=== PATIENT | male | born 1960 | race Caucasian/White ===

== ENCOUNTER 2017-11-03 12:17 | Inpatient (IN) | payer MEDICARE, BC ==
[2017-11-03] MEDS ORDERED: Albuterol-Ipratrop 3 mg / 0.5 (3 ml) UD INH STA ×2 (12:49→14:59)
[2017-11-03] MEDS ORDERED: Albuterol-Ipratrop 3 mg / 0.5 (3 ml) UD ONE ×2 (12:51→15:23)
--- NOTE | 2017-11-03 12:58 | ED PDOC ---
HPI: General Adult Time Seen by Provider: 11/03/17 12:41 Chief Complaint (Nursing): ENT Problem Chief Complaint (Provider): Cough History Per: Patient History/Exam Limitations: no limitations Onset/Duration Of Symptoms: Days (x7) Current Symptoms Are (Timing): Still Present Additional Complaint(s): 57 year old male presents to the emergency department complaining of a cough for 7 days. Patient saw his primary, Dr. Dozier, on Tuesday and was prescribed Augmentin and promethazine cough medicine but he states he doesn't feel any better. He denies any fever or chills. PMD: Dr. Dozier Past Medical History Reviewed: Historical Data, Nursing Documentation, Vital Signs Vital Signs: Last Vital Signs Temp 98.0 F 11/03/17 12:35 Pulse 79 11/03/17 12:35 Resp 16 11/03/17 12:35 BP 162/75 H 11/03/17 12:35 Pulse Ox 92 L 11/03/17 14:49 - Medical History PMH: Anxiety, Asthma, Atrial Fibrillation, CAD, CHF, Diabetes, Fractures, HTN, Hypercholesterolemia, Hyperlipidemia, Chronic Kidney Disease - Surgical History Surgical History: CABG, Carotid Endarterectomy, Cholecystectomy, Coronary Stent Other surgeries: Kidney transplant - Family History Family History: States: No Known Family Hx - Living Arrangements Living Arrangements: With Family - Social History Current smoker - smoking cessation education provided: No Alcohol: None Drugs: Denies - Home Medications Home Medications: Ambulatory Orders Medication Instructions Recorded Insulin Aspart/Insulin Aspar 16 - 18 unit SC DIN 08/20/15 [Novolog Mix 70/30 (70/30 units/ml)] Insulin Aspart/Insulin Aspar 25 unit SC BRK 08/20/15 [Novolog Mix 70/30 (70/30 units/ml)] Pantoprazole Sodium [Protonix] 40 mg PO ACL 08/20/15 Pregabalin [Lyrica] 100 mg PO HS 12/22/15 traMADol [Ultram] 50 mg PO DAILY PRN 12/22/15 Albuterol 0.083% [Albuterol 0.083% 3 ml IH Q6 PRN 11/03/17 Inhal Quyen (2.5 mg/3 ml) UD] Alprazolam [Xanax] 0.5 mg PO HS PRN 11/03/17 Amoxicillin/Clavulanate [Augmentin 1 tab PO BID 11/03/17 875 MG-125 MG Tab] Aspirin [Ecotrin] 81 mg PO DAILY 11/03/17 Atorvastatin [Lipitor] 20 mg PO HS 11/03/17 Cholecalciferol (Vitamin D3) 2,000 unit PO DAILY 11/03/17 [Vitamin D3] Diltiazem HCl [Diltiazem 24Hr ER] 240 mg PO DAILY 11/03/17 Metoprolol Tartrate [Lopressor] 100 mg PO Q12 11/03/17 Multivitamin [Multi-Vitamin Daily] 1 tab PO DAILY 11/03/17 Mycophenolate Sodium [Mycophenolic 540 mg PO Q12 11/03/17 Acid] Promethazine [Phenergan Syrup] 10 ml PO Q6 PRN 11/03/17 Sulfamethoxazole/Trimethoprim 1 tab PO MWF 11/03/17 [Bactrim DS Tab] Tacrolimus [Astagraf Xl] 2 mg PO DAILY@0700 11/03/17 Warfarin [Coumadin] 5 mg PO SUMOTUTHSA 11/03/17 Warfarin [Coumadin] 7.5 mg PO WE 11/03/17 predniSONE [predniSONE Tab] 5 mg PO DAILY 11/03/17 - Allergies Allergies/Adverse Reactions: Allergies Allergy/AdvReac Type Severity Reaction Status Date / Time No Known Allergies Allergy Verified 11/03/17 12:35 Review of Systems ROS Statement: Except As Marked, All Systems Reviewed And Found Negative Constitutional: Negative for: Fever, Chills Respiratory: Positive for: Cough, Shortness of Breath, Wheezing. Negative for: Hemoptysis, Sputum Gastrointestinal: Negative for: Nausea, Vomiting Neurological: Negative for: Headache, Dizziness Physical Exam - Reviewed Nursing Documentation Reviewed: Yes Vital Signs Reviewed: Yes - Physical Exam Appears: Positive for: Well, Non-toxic, No Acute Distress Head Exam: Positive for: ATRAUMATIC, NORMAL INSPECTION, NORMOCEPHALIC Skin: Positive for: Normal Color. Negative for: Rash Eye Exam: Positive for: Other (chronic vision loss left eye) Cardiovascular/Chest: Positive for: Regular Rate, Rhythm Respiratory: Positive for: Rhonchi, Wheezing (bilateral inspiratory and expiratory wheezing). Negative for: Accessory Muscle Use, Respiratory Distress Gastrointestinal/Abdominal: Positive for: Soft. Negative for: Tenderness Back: Negative for: L CVA Tenderness, R CVA Tenderness Extremity: Positive for: Normal ROM Neurologic/Psych: Positive for: Alert, Oriented - Laboratory Results Result Diagrams: 11/03/17 14:15 11/03/17 14:15 - ECG Interpretation Of ECG: Normal sinus rhythm 78 bpm, left axis deviation, left ventricular hypertrophy, reviewed by PA and ED attending O2 Sat by Pulse Oximetry: 92 (RA) Pulse Ox Interpretation: Abnormal - Other Rad CXR X-Ray: Interpreted by Me, Viewed By Me X-Ray Interpretation: no acute finding Nebulizer Treatments/Peak Flow - Duonebs Number of Bronchodilator Doses given?: 1 (duoneb) - Pre/Post Peak Flow Pre Treatment Peak Flow: 110 Post treatment Peak Flow: 190 - Steroid Treatment Steroid: IV (125 solumedrol) - Clinical Response Clinical Response: Unchanged Medical Decision Making Medical Decision Making: Impression: 57 year old with URI symptoms Time: 12:48 Initial Plan: --Chest X-Ray --Duoneb 3 ml INH --Peak Flow pre/post treatment --Flu swab --Urinalysis --Urine culture --EKG --CBC --CMP --Troponin I --PO Robitussin with codeine 10 ml 14:45 Case discussed with patient's primary doctor, Dr. Dozier, who recommends admission. Patient has been taking oral Augmentin and cough meds for 4 days and reports no improvement to URI symptoms. Patient's oxygen saturation is between 90 and 92% in the ED despite administration of IV steroids and DuoNeb treatments. Leukocytes also noted in the urine consistent with UTI. Patient agrees with admission. On gram IV Rocephin ordered along with 500 mg IV Zithromax. Scribe Attestation: Documented by Elvira Pittman, acting as a scribe for Hermila Alvarado PA-C Provider Scribe Attestation: All medical record entries made by the Scribe were at my direction and personally dictated by me. I have reviewed the chart and agree that the record accurately reflects my personal performance of the history, physical exam, medical decision making, and the department course for this patient. I have also personally directed, reviewed, and agree with the discharge instructions and disposition. Disposition - Clinical Impression Clinical Impression: Dyspnea and respiratory abnormalities, Urinary tract infection - Patient ED Disposition Is Patient to be Admitted: Yes - Disposition Disposition Time: 15:46 Condition: FAIR Forms: [facility] ([place]) - Pt Status Changed To: Hospital Disposition Of: Inpatient - Admit Certification Admit to Inpatient:: After my assessment, the patient will require hospitalization for at least two midnights. This is because of the severity of symptoms shown, intensity of services needed, and/or the medical risk in this patient being treated as an outpatient. - POA Present On Arrival: None Results - Lab Results Lab Results: 11/03/17 11/03/17 11/03/17 14:15 14:15 13:54 WBC 6.5 RBC 5.14 Hgb 14.5 Hct 44.4 MCV 86.4 D MCH 28.2 MCHC 32.6 L RDW 16.2 H Plt Count 159 MPV 8.8 Neut % (Auto) 87.7 H Lymph % (Auto) 2.2 L Dix[place] % (Auto) 8.6 Eos % (Auto) 0.8 Baso % (Auto) 0.7 Neut # (Auto) 5.7 Lymph # (Auto) 0.1 L [place] # (Auto) 0.6 Eos # (Auto) 0.1 Baso # (Auto) 0.0 Neutrophils % (Manual) Pending Lymphocytes % (Manual) Pending Monocytes % (Manual) Pending Platelet Estimate Pending Sodium 139 Potassium 4.8 Chloride 100 Carbon Dioxide 28 Anion Gap 16 BUN 24 H Creatinine 1.1 Est GFR ( Amer) > 60 Est GFR (Non-Af Amer) > 60 POC Glucose (mg/dL) Random Glucose 229 H Calcium 10.4 H Total Bilirubin 0.6 AST 29 ALT 31 Alkaline Phosphatase 99 Troponin I 0.0340 Total Protein 6.6 Albumin 3.8 Globulin 2.8 Albumin/Globulin Ratio 1.3 Urine Color Yellow Urine Clarity Slighty-cloudy Urine pH 6.0 Ur Specific [place] 1.022 Urine Protein 30 Urine Glucose (UA) >=500 Urine Ketones Negative Urine Blood Negative Urine Nitrate Negative Urine Bilirubin Negative Urine Urobilinogen 0.2-1.0 Ur Leukocyte Esterase Small Urine RBC (Auto) 2 Urine Microscopic WBC 9 H Ur Squamous Epith Cells 2 Amorphous Sediment Few H Urine Bacteria Few H Granular Casts (Auto) 1 Influenza Typ A,B (EIA) 11/03/17 11/03/17 13:54 13:31 WBC RBC Hgb Hct MCV MCH MCHC RDW Plt Count MPV Neut % (Auto) Lymph % (Auto) [place] % (Auto) Eos % (Auto) Baso % (Auto) Neut # (Auto) Lymph # (Auto) [place] # (Auto) Eos # (Auto) Baso # (Auto) Neutrophils % (Manual) Lymphocytes % (Manual) Monocytes % (Manual) Platelet Estimate Sodium Potassium Chloride Carbon Dioxide Anion Gap BUN Creatinine Est GFR ( Amer) Est GFR (Non-Af Amer) POC Glucose (mg/dL) 234 H Random Glucose Calcium Total Bilirubin AST ALT Alkaline Phosphatase Troponin I Total Protein Albumin Globulin Albumin/Globulin Ratio Urine Color Urine Clarity Urine pH Ur Specific [place] Urine Protein Urine Glucose (UA) Urine Ketones Urine Blood Urine Nitrate Urine Bilirubin Urine Urobilinogen Ur Leukocyte Esterase Urine RBC (Auto) Urine Microscopic WBC Ur Squamous Epith Cells Amorphous Sediment Urine Bacteria Granular Casts (Auto) Influenza Typ A,B (EIA) Negative for flu a/b
--- NOTE | 2017-11-03 13:38 | RAD ---
HISTORY: COMPARISON: 12/22/2015. TECHNIQUE: Chest PA and lateral FINDINGS: LINES AND TUBES: None. LUNG AND PLEURA: There is mild pulmonary venous congestion. No focal consolidation. There is left pleural thickening. No right pleural effusion. HEART AND MEDIASTINUM: There is mild cardiomegaly. Status post CABG. The hilar and mediastinal contours are within normal limits. SKELETAL STRUCTURES: There are old fracture deformities in the left lower lateral ribs. VISUALIZED UPPER ABDOMEN: Normal. OTHER FINDINGS: None. IMPRESSION: No active pulmonary disease.
[2017-11-03] MEDS ORDERED: guaiFENesin-Codeine 100-10mg/5ml Syrup (5 ml) UD PO STA (13:59)
[2017-11-03 14:03] LABS: URINE BACTERIA FEW (<OCC); URINE BILIRUBIN NEGATIVE (NEGATIVE); URINE BLOOD NEGATIVE (NEGATIVE); URINE CLARITY SLIGHTY-CLOUDY (Clear); URINE COLOR YELLOW (YELLOW); URINE GLUCOSE (UA) >=500 mg/dL (Normal); URINE LEUKOCYTE ESTERASE SMALL Leu/uL (Negative); URINE PROTEIN 30 mg/dL (NEGATIVE); URINE UROBILINOGEN 0.2-1.0 mg/dL (0.2-1.0)
[2017-11-03 14:04] LABS: GRANULAR CAST 1 /lpf (0-1); SQUAMOUS EPITHIAL 2 /hpf (0-5); URINE AMORPHOUS SEDIMENT FEW /ul (<OCC)
[2017-11-03 14:28] LABS: ALB/GLOB RATIO 1.3 (1.0-2.1); ALBUMIN 3.8 g/dL (3.5-5.0); ALT/SGPT 31 U/L (21-72); AST/SGOT 29 U/L (17-59); BLOOD UREA NITROGEN 24 mg/dl (9-20); CALCIUM 10.4 mg/dL (8.4-10.2); GFR AFRICAN-AMERICAN > 60; GFR NON-AFRICAN AMERICAN > 60
[2017-11-03 14:35] LABS: BASO % 0.7 % (0.0-2.0); EOS # 0.1 K/uL (0.0-0.7); EOS % 0.8 % (0.0-4.0); HEMOGLOBIN 14.5 g/dL (12.0-18.0); LYMPH # 0.1 K/uL (1.0-4.3); LYMPH % 2.2 % (20.0-40.0); MEAN CELL VOLUME 86.4 fl (80.0-94.0); MEAN CORPUSCULAR HEMOGLOBIN 28.2 pg (27.0-31.0); MEAN CORPUSCULAR HGB CONC 32.6 g/dL (33.0-37.0); MEAN PLATELET VOLUME 8.8 fl (7.2-11.7); MONO # 0.6 K/uL (0.0-0.8); MONO % 8.6 % (0.0-10.0); NEUT # 5.7 K/uL (1.8-7.0); NEUT % 87.7 % (50.0-75.0); NRBC % 0.1 % (0.0-0.0); PLATELET COUNT 159 K/uL (130-400); RBC 5.14 Mil/uL (4.40-5.90); RED CELL DISTRIBUTION WIDTH 16.2 % (11.5-14.5); WHITE BLOOD COUNT 6.5 K/uL (4.8-10.8)
[2017-11-03] MEDS ORDERED: guaiFENesin-Codeine 100-10mg/5ml Syrup (5 ml) UD ONE (14:44)
[2017-11-03] MEDS ORDERED: Azithromycin 500 MG in Sodium Chloride 0.9% 250 ML IVPB STA (14:47)
[2017-11-03] MEDS ORDERED: Nasal Spray(Ocean spray) NAS STA (15:00)
[2017-11-03] MEDS ORDERED: cefTRIAXone (Rocephin) 1 gm Inj ONE (15:23)
[2017-11-03 15:49] LABS: ANISOCYTOSIS SLIGHT; BASOPHIL 1 % (0-2); EOSINOPHIL 2 % (0-7); LYMPHOCYTE 3 % (20-50); MONOCYTE 8 % (0-10); NEUTROPHIL 86 % (42-75); PLATELET ESTIMATE NORMAL (NORMAL); TOTAL CELLS COUNTED 100
--- NOTE | 2017-11-03 18:22 | CARD ---
APPROVED REPORT EKG Measurement Heart [id number] <Conclusion> Normal sinus rhythm Possible Left atrial enlargement Left axis deviation Left ventricular hypertrophy with repolarization abnormality Abnormal ECG
[2017-11-04] MEDS ORDERED: Promethazine 6.25 MG/5 ML CUP PO PRN (00:21)
[2017-11-04] MEDS ORDERED: Sodium Chloride 3% for Inhalation 4 ML VIAL.NEB IH PRN (01:09)
[2017-11-04] MEDS ORDERED: methylPREDNISolone 80 MG in Sodium Chloride 0.9% 50 ML IV SCH (01:15)
[2017-11-04] MEDS: Promethazine 12.5 mg/10 ml Syrup PO PRN ×3 (02:38→20:58)
[2017-11-04] MEDS: Albuterol-Ipratrop 3 mg / 0.5 (3 ml) UD INH SCH ×4 (02:41→19:19)
[2017-11-04 05:44] LABS: HEMOGLOBIN 14.3 g/dL (12.0-18.0); MEAN CELL VOLUME 87.2 fl (80.0-94.0); MEAN CORPUSCULAR HEMOGLOBIN 28.3 pg (27.0-31.0); MEAN CORPUSCULAR HGB CONC 32.5 g/dL (33.0-37.0); RBC 5.05 Mil/uL (4.40-5.90); RED CELL DISTRIBUTION WIDTH 16.1 % (11.5-14.5); WHITE BLOOD COUNT 6.8 K/uL (4.8-10.8)
[2017-11-04 05:55] LABS: BLOOD UREA NITROGEN 25 mg/dl (9-20); CALCIUM 9.9 mg/dL (8.4-10.2); GFR AFRICAN-AMERICAN > 60; GFR NON-AFRICAN AMERICAN > 60; HDL CHOLESTEROL 36 MG/DL (30-70)
[2017-11-04 05:59] LABS: INR 1.8 (0.9-1.2); PROTHROMBIN TIME 19.7 Seconds (9.8-13.1)
[2017-11-04 06:06] LABS: LDL CHOLESTEROL 114 mg/dL (0-129)
[2017-11-04] MEDS ORDERED: INSULIN ASPART SC SCH ×2 (08:00→17:00)
[2017-11-04] MEDS ORDERED: INSULIN ASPAR SC SCH ×2 (08:00→17:00)
[2017-11-04] MEDS ORDERED: [UNRECOGNIZED DRUG - OTHER] SC SCH (08:00)
[2017-11-04] MEDS: Tmp-Smz 800 mg-160 mg DS Tab PO SCH (08:41)
[2017-11-04] MEDS: diltiaZEM 240 mg/24 Hours CD Cap PO SCH (08:42)
[2017-11-04] MEDS: Insulin Lispro Mix 75/25 100 units/ml (HumaLog) 10ml SC SCH (08:46)
[2017-11-04] MEDS: Multivitamin With Minerals Tab PO SCH (08:52)
[2017-11-04] MEDS: Cholecalciferol 1,000 INTLU TAB PO SCH (08:53)
[2017-11-04] MEDS ORDERED: Amoxicillin-Clav 875-125 mg Tab PO SCH (09:00)
[2017-11-04] MEDS ORDERED: DILTIAZEM HCL 240 MG PO SCH (09:00)
[2017-11-04] MEDS ORDERED: Patient's Own Med (Multivitamin [Multi-Vitamin Daily] 1 TAB) PO SCH (09:00)
--- NOTE | 2017-11-04 11:03 | HP ---
HISTORY OF PRESENT ILLNESS: Mr. Brown is a 57-year-old male who was admitted via the Emergency Room because of progressively worsening shortness of breath, exercise intolerance, and cough productive of thick tenacious mucus for the past 1 week prior to presentation. He was seen in the office about 2 weeks prior to this presentation, treated with oral antibiotics and symptoms improved but then he got sick again after he was exposed to his nephew at home who had symptoms of upper respiratory tract infection and was recently diagnosed to have a strep throat. He showed up in the office and was placed on Augmentin, but symptoms, however, worsened. He denies fever or chills, but admits to cough, chest tightness, exercise intolerance, and sore throat. PAST MEDICAL HISTORY: Coronary artery bypass graft, recent renal transplantation, paroxysmal atrial fibrillation, asthma, coronary artery disease, congestive heart failure, diabetes mellitus, hypertension, hyperlipidemia, and anxiety disorder with peripheral neuropathy. FAMILY HISTORY: Noncontributory. SOCIAL HISTORY: He does not smoke or drink and lives at home with . REVIEW OF SYSTEMS: Remarkable for unsteadiness of gait, exercise intolerance, and pain in the lower extremities. PHYSICAL EXAMINATION: GENERAL: The patient is alert and oriented, still uncomfortable and appears chronically ill. VITAL SIGNS: Blood pressure of 162/75, pulse of 79, respiratory rate of 16-20 per minute. He is febrile with temperature of 98 degrees Fahrenheit, O2 sat 92% on room air. SKIN: Shows fair turgor. HEENT: Pupils are equal and reactive to light and accommodation. JVP flat. Mouth shows fair hygiene with mucous engorgement of pharynx. LUNG: Poor aeration bilaterally with audible wheezing and rales. HEART: Regular. No murmurs or gallops appreciated. There is a scar of coronary artery bypass graft over the anterior chest wall area. ABDOMEN: Soft and nontender, no organomegaly. EXTREMITIES: Show 1+ pitting pedal edema. CENTRAL NERVOUS SYSTEM: Exam grossly intact except for unsteadiness of gait. The patient is alert and oriented x3. LABORATORY DATA: WBC 6.8, hemoglobin 14.3, and platelet count of 163,000. Sodium of 135, potassium of 5.1, BUN of 25, creatinine of 1.0, and serum glucose of 361. ProBNP of 1310. Cholesterol of 165 and LDL 114. Chest x-ray mild bilateral pulmonary congestion, otherwise, unremarkable. Hardware of coronary artery bypass graft noted. EKG is remarkable for normal sinus rhythm, possible left atrial enlargement, left ventricular , and left ventricular hypertrophy by voltage. IMPRESSION: Shortness of breath, cough probably secondary to acute asthma exacerbation, upper respiratory tract infection, history of coronary artery bypass graft, history of diabetes mellitus with hyperglycemia (type 2 diabetes), history of renal transplantation, history of peripheral neuropathy, and hyperlipidemia. PLAN: The plan is intravenous steroids as well as bronchodilators, intravenous antibiotics, and oxygen. We would obtain sputum for Gram stain and cultures. Septic workup already done in the Emergency Room. Further therapy will depend on findings. We will discharge home once clinically stable. Luis Alberto Dozier MD
[2017-11-04] MEDS: MYCOPHENOLIC ACID 180 MG PO SCH ×2 (12:47→20:57)
[2017-11-04] MEDS: TACROLIMUS 1 MG PO SCH (12:48)
[2017-11-04] MEDS: Azithromycin 500 MG in Sodium Chloride 0.9% 250 ML IVPB SCH (12:49)
[2017-11-04] MEDS: Pantoprazole 40 mg EC Tab PO SCH (12:54)
--- NOTE | 2017-11-04 13:43 | PQF GENQUE ---
Dr. Dozier, Please clarify type of asthma exacerbation : if known: i.e. Mild intermittent Mild persistent Moderate persistent Severe persistent Other (please specify) Clinically unable to determine Unknown Albuterol INH stat x 2 and Q6 hrs., Solumedrol IV This form is a permanent part of the medical record Clarification of your documentation is requested to better reflect the severity of illness and intensity of treatment of your patient. Indicators present [] Specify: [] [] Specify: [] [] Specify: [] [] Specify: [] Location in the medical record that reflects the above clinical findings: [] Treatment Provided: [] PHYSICIAN'S RESPONSE Based on your medical judgment of the clinical indicators outlined above please clarify the following: [x] Practitioner response --acute exacerbation of mild intermittent asthma [] If unable to determine, please check the box, sign and date. Present On Admission (POA) Indicator: [] Present at the time of admission [] Not present at the time of admission [] Clinically Undetermined In responding to this query, please exercise your independent professional judgment. The fact that a question is asked does not imply that any particular answer is desired or expected. Thank you for your clarification on this documentation. If you have any questions please call. * Thank you, Mansi Ramirez RN ext. #[phone] MTDD
--- NOTE | 2017-11-04 14:05 | PQF GENQUE ---
Dr. Dozier, 2 queries: 1.Respiratory Failure ruled in or ruled out?: this dx. is listed in the Admission order and then the diagnosis is dropped 2. If ruled in Acuity and Type? OR; Unable to determine ER: PE: Respiratory: Positive for: Rhonchi, Wheezing (bilateral inspiratory and expiratory wheezing). Negative for: Accessory Muscle Use, Respiratory Distress O2 Sat by Pulse Oximetry: 92 (RA) Duonebs Number of Bronchodilator Doses given?: 1 (duoneb) - Pre/Post Peak Flow Pre Treatment Peak Flow: 110 Post treatment Peak Flow: 190 - Steroid Treatment Steroid: IV (125 solumedrol) Patient's oxygen saturation is between 90 and 92% in the ED despite administration of IV steroids and DuoNeb treatments Clinical Impression: Dyspnea and respiratory abnormalities, Urinary tract infection H and P: PE: LUNG: Poor aeration bilaterally with audible wheezing and rales. Impression: SOB, Cough probably secondary to acute Asthma Exacerbation, URI This form is a permanent part of the medical record Clarification of your documentation is requested to better reflect the severity of illness and intensity of treatment of your patient. Indicators present [] Specify: [] [] Specify: [] [] Specify: [] [] Specify: [] Location in the medical record that reflects the above clinical findings: [] Treatment Provided: [] PHYSICIAN'S RESPONSE Based on your medical judgment of the clinical indicators outlined above please clarify the following: [x] Practitioner response --respiratory failure ruled out [] If unable to determine, please check the box, sign and date. Present On Admission (POA) Indicator: [] Present at the time of admission [] Not present at the time of admission [] Clinically Undetermined In responding to this query, please exercise your independent professional judgment. The fact that a question is asked does not imply that any particular answer is desired or expected. Thank you for your clarification on this documentation. If you have any questions please call. * Thank you, Mansi Ramirez RN ext. #[phone] MTDD
[2017-11-04] MEDS: Insulin Lispro (humaLOG) 100 Units/ml Inj SC SCH ×2 (14:07→17:27)
--- NOTE | 2017-11-04 14:12 | PQF GENQUE ---
Dr. Dozier, 3 queries: CHF and CKD and PAF: listed as hx.: Are any of these dxs. currently being treated? -------Current Paroxysmal A-Fib -------If CHF is a current condition: please include the acuity and type if known ------ If CKD ruled in : Stage? versus: history and not current conditions BUN:24->25 Creatinine: 1.1->1.0 Est GRF: >60/>60 ER: PE: Respiratory: Positive for: Rhonchi, Wheezing (bilateral inspiratory and expiratory wheezing). Negative for: Accessory Muscle Use, Respiratory Distress O2 Sat by Pulse Oximetry: 92 (RA) Duonebs Number of Bronchodilator Doses given?: 1 (duoneb) - Pre/Post Peak Flow Pre Treatment Peak Flow: 110 Post treatment Peak Flow: 190 - Steroid Treatment Steroid: IV (125 solumedrol) Patient's oxygen saturation is between 90 and 92% in the ED despite administration of IV steroids and DuoNeb treatments Clinical Impression: Dyspnea and respiratory abnormalities, Urinary tract infection H and P: H and P: PE: LUNG: Poor aeration bilaterally with audible wheezing and rales EXTREMITIES: Show 1+ pitting pedal edema. Chest x-ray mild bilateral pulmonary congestion, otherwise, unremarkable. IMPRESSION: Shortness of breath, cough probably secondary to acute asthma exacerbation, upper respiratory tract infection, history of coronary artery bypass graft, history of diabetes mellitus with hyperglycemia (type 2 diabetes) , history of renal transplantation, history of peripheral neuropathy, and hyperlipidemia. meds include: Coumadin daily, ASA, Diltiazem This form is a permanent part of the medical record Clarification of your documentation is requested to better reflect the severity of illness and intensity of treatment of your patient. Indicators present [] Specify: [] [] Specify: [] [] Specify: [] [] Specify: [] Location in the medical record that reflects the above clinical findings: [] Treatment Provided: [] PHYSICIAN'S RESPONSE Based on your medical judgment of the clinical indicators outlined above please clarify the following: [x] Practitioner response --paroxsmal a.fib--now in sinus rhythm--being treated with coumadin chf-stable [] If unable to determine, please check the box, sign and date. Present On Admission (POA) Indicator: [] Present at the time of admission [] Not present at the time of admission [] Clinically Undetermined In responding to this query, please exercise your independent professional judgment. The fact that a question is asked does not imply that any particular answer is desired or expected. Thank you for your clarification on this documentation. If you have any questions please call. * Thank you, Mansi Ramirez RN ext. #[phone] MTDD
[2017-11-04] MEDS ORDERED: Insulin Lispro Mix 75/25 100 units/ml (HumaLog) 10ml SC SCH (17:00)
[2017-11-04] MEDS ORDERED: [UNRECOGNIZED DRUG - OTHER] SC SCH (17:00)
[2017-11-05] MEDS: Albuterol-Ipratrop 3 mg / 0.5 (3 ml) UD INH SCH ×4 (01:00→20:02)
[2017-11-05] MEDS: Promethazine 12.5 mg/10 ml Syrup PO PRN (03:47)
[2017-11-05] MEDS: Insulin Lispro (humaLOG) 100 Units/ml Inj SC SCH ×4 (08:00→22:15)
[2017-11-05] MEDS: Insulin Lispro Mix 75/25 100 units/ml (HumaLog) 10ml SC SCH ×2 (08:00→18:00)
[2017-11-05] MEDS: TACROLIMUS 1 MG PO SCH (08:00)
[2017-11-05 08:16] LABS: BLOOD UREA NITROGEN 34 mg/dl (9-20); CALCIUM 10.1 mg/dL (8.4-10.2); GFR AFRICAN-AMERICAN > 60; GFR NON-AFRICAN AMERICAN > 60
[2017-11-05 08:21] LABS: INR 2.6 (0.9-1.2)
[2017-11-05 08:30] LABS: PROTHROMBIN TIME 28.9 Seconds (9.8-13.1)
[2017-11-05] MEDS: MYCOPHENOLIC ACID 180 MG PO SCH ×2 (09:00→21:13)
[2017-11-05] MEDS: Azithromycin 500 MG in Sodium Chloride 0.9% 250 ML IVPB SCH (09:00)
[2017-11-05] MEDS: Multivitamin With Minerals Tab PO SCH (09:21)
[2017-11-05] MEDS: diltiaZEM 240 mg/24 Hours CD Cap PO SCH (09:23)
[2017-11-05] MEDS: Cholecalciferol 1,000 INTLU TAB PO SCH (09:24)
--- NOTE | 2017-11-05 11:47 | CP.PCM.PN ---
Subjective - Date & Time of Evaluation Date of Evaluation: 11/05/17 Time of Evaluation: 11:47 - Subjective Subjective: MORE SHORT OF BREATH WITH COUGHING SPELLS TODAY Objective - Vital Signs/Intake and Output Vital Signs (last 24 hours): Temp Pulse Resp BP Pulse Ox 97.4 F L 65 20 135/71 93 L 11/05/17 08:35 11/05/17 09:23 11/05/17 08:35 11/05/17 09:23 11/05/17 08:35 - Medications Medications: Current Medications Acetaminophen (Tylenol 325mg Tab) 650 mg PO Q6 PRN PRN Reason: temp 101 Acetylcysteine (Acetylcysteine 20%) 2 ml INH RBID SOLA Albuterol/Ipratropium (Duoneb 3 Mg/0.5 Mg (3 Ml) Ud) 3 ml INH RQ6 [facility] Last Admin: 11/05/17 07:55 Dose: 3 ml Alprazolam (Xanax) 0.5 mg PO HS PRN PRN Reason: Anxiety Aspirin (Ecotrin) 81 mg PO DAILY [facility] Last Admin: 11/05/17 09:25 Dose: 81 mg Atorvastatin Calcium (Lipitor) 20 mg PO HS [facility] Last Admin: 11/04/17 21:01 Dose: 20 mg Cholecalciferol (Vitamin D) 2,000 intlu PO DAILY [facility] Last Admin: 11/05/17 09:24 Dose: 2,000 intlu Diltiazem HCl (Cardizem Cd) 240 mg PO DAILY [facility] Last Admin: 11/05/17 09:23 Dose: 240 mg Home Med (Mycophenolate Sodium [Mycophenolic Acid]) 540 mg PO Q12 [facility] Last Admin: 11/05/17 09:00 Dose: 540 mg Home Med (Tacrolimus [Astagraf Xl]) 3 mg PO DAILY@0700 [facility] Last Admin: 11/05/17 08:00 Dose: 3 mg Azithromycin 500 mg/ Sodium (Chloride) 250 mls @ 250 mls/hr IVPB DAILY [facility] PRN Reason: Protocol Last Admin: 11/05/17 09:00 Dose: 250 mls/hr Ceftriaxone Sodium 1 gm/ (Sodium Chloride) 100 mls @ 100 mls/hr IVPB DAILY [facility] PRN Reason: Protocol Last Admin: 11/05/17 09:00 Dose: 100 mls/hr Insulin Human Lispro (Humalog) 0 units SC ACHS [facility] PRN Reason: Protocol Last Admin: 11/05/17 11:16 Dose: 10 units Insulin Human Regular (Humulin R) 15 units SC ONCE ONE Stop: 11/05/17 12:01 Insulin Lispro Protam/Lispro Human (Humalog Mix 75/25) 30 units SC BRK SOLA Insulin Lispro Protam/Lispro Human (Humalog Mix 75/25) 20 units SC DIN [facility] Methylprednisolone (Solu-Medrol) 40 mg IVP Q8H [facility] Metoprolol Tartrate (Lopressor) 100 mg PO Q12 [facility] Last Admin: 11/04/17 20:58 Dose: 100 mg Multivitamins/Minerals (Therapeutic-M Tab) 1 tab PO DAILY [facility] Last Admin: 11/05/17 09:21 Dose: 1 tab Pantoprazole Sodium (Protonix Ec Tab) 40 mg PO ACL [facility] Last Admin: 11/04/17 12:54 Dose: 40 mg Prednisone (Prednisone Tab) 5 mg PO DAILY [facility] Last Admin: 11/05/17 09:24 Dose: 5 mg Pregabalin (Lyrica) 100 mg PO HS [facility] Last Admin: 11/04/17 21:02 Dose: 100 mg Promethazine HCl/Codeine (Phenergan/Codeine Oral Syrup) 10 ml PO Q6 PRN PRN Reason: Cough Tramadol HCl (Ultram) 50 mg PO DAILY PRN PRN Reason: Pain, severe (8-10) Trimethoprim/Sulfamethoxazole (Bactrim Ds Tab) 1 tab PO MWF [facility] PRN Reason: Protocol Last Admin: 11/04/17 08:41 Dose: 1 tab - Labs Labs: 11/04/17 05:00 11/05/17 06:15 PT 28.9 Seconds (9.8-13.1) H D 11/05/17 06:15 INR 2.6 (0.9-1.2) H D 11/05/17 06:15 - Constitutional Appears: Chronically Ill - Head Exam Head Exam: ATRAUMATIC, NORMAL INSPECTION, NORMOCEPHALIC - Eye Exam Eye Exam: EOMI, Normal appearance, PERRL Pupil Exam: NORMAL ACCOMODATION, PERRL - ENT Exam ENT Exam: Mucous Membranes Moist, Normal Exam - Neck Exam Neck Exam: Full ROM, Normal Inspection. absent: Lymphadenopathy - Respiratory Exam Respiratory Exam: Decreased Breath Sounds, Prolonged Expiratory Phase, Rales, Wheezes, NORMAL BREATHING PATTERN - Cardiovascular Exam Cardiovascular Exam: REGULAR RHYTHM, +S1, +S2. absent: Murmur - GI/Abdominal Exam GI & Abdominal Exam: Soft, Normal Bowel Sounds. absent: Tenderness - Rectal Exam Rectal Exam: NORMAL INSPECTION - Extremities Exam Extremities Exam: Full ROM, Normal Capillary Refill, Normal Inspection. absent : Joint Swelling, Pedal Edema - Back Exam Back Exam: NORMAL INSPECTION - Neurological Exam Neurological Exam: Alert, Awake, CN II-XII Intact, Normal Gait, Oriented x3 - Psychiatric Exam Psychiatric exam: Normal Affect, Normal Mood - Skin Skin Exam: Dry, Intact, Normal Color, Warm Assessment and Plan - Assessment and Plan (Free Text) Assessment: ACUTE EXACERBATION OF ASTHMA URI UNCONTROLLED TYPE 2 DM PEDAL EDEMA Plan: CONTINUE RX ORDERED
[2017-11-05] MEDS: MethylPREDNISolone 40 mg Vial IVP SCH ×2 (12:00→21:12)
[2017-11-05] MEDS ORDERED: Insulin Regular 100 units/ml SC ONE (12:00)
[2017-11-05] MEDS: Pantoprazole 40 mg EC Tab PO SCH (12:00)
--- NOTE | 2017-11-05 16:02 | RAD ---
HISTORY: asthma COMPARISON: Chest radiograph dated 11/03/2017. TECHNIQUE: Chest PA and lateral FINDINGS: LUNGS: No active pulmonary disease. PLEURA: No significant pleural effusion identified. No pneumothorax apparent. CARDIOVASCULAR: Prior sternotomy with sternal wires and surgical clips redemonstrated. Atherosclerotic aortic calcifications. Cardiomediastinal silhouette unchanged. OSSEOUS STRUCTURES: Unchanged. VISUALIZED UPPER ABDOMEN: Normal. OTHER FINDINGS: None. IMPRESSION: No active disease.
[2017-11-05] MEDS: Promethazine/Cod 6.25mg-10mg/5ml Syr UD PO PRN (18:12)
[2017-11-05] MEDS: Acetylcysteine 20% Inhal Soln (4ml) INH SCH (20:02)
[2017-11-06] MEDS: Albuterol-Ipratrop 3 mg / 0.5 (3 ml) UD INH SCH ×5 (01:00→19:26)
[2017-11-06] MEDS: MethylPREDNISolone 40 mg Vial IVP SCH ×3 (03:43→21:36)
[2017-11-06] MEDS: Promethazine/Cod 6.25mg-10mg/5ml Syr UD PO PRN (04:02)
[2017-11-06] MEDS: Acetylcysteine 20% Inhal Soln (4ml) INH SCH ×2 (07:28→19:26)
[2017-11-06] MEDS: Insulin Lispro Mix 75/25 100 units/ml (HumaLog) 10ml SC SCH ×2 (08:43→17:29)
[2017-11-06] MEDS: Insulin Lispro (humaLOG) 100 Units/ml Inj SC SCH ×5 (08:44→21:38)
[2017-11-06] MEDS: MYCOPHENOLIC ACID 180 MG PO SCH ×2 (08:46→21:37)
[2017-11-06] MEDS: TACROLIMUS 1 MG PO SCH (08:48)
[2017-11-06] MEDS: diltiaZEM 240 mg/24 Hours CD Cap PO SCH (08:49)
[2017-11-06] MEDS: Multivitamin With Minerals Tab PO SCH (08:49)
[2017-11-06] MEDS: Cholecalciferol 1,000 INTLU TAB PO SCH (08:50)
[2017-11-06] MEDS: Azithromycin 500 MG in Sodium Chloride 0.9% 250 ML IVPB SCH (08:56)
--- NOTE | 2017-11-06 10:16 | CP.PCM.PN ---
Subjective - Date & Time of Evaluation Date of Evaluation: 11/06/17 Time of Evaluation: 10:17 - Subjective Subjective: CONTINUES TO COUGH AND HAVE SHORTNESS OF BREATH AT REST AND ON MILD EXERTION DENIES CHEST PAINS SPUTUM IS THICK Objective - Vital Signs/Intake and Output Vital Signs (last 24 hours): Temp Pulse Resp BP Pulse Ox 97.8 F 97 H 20 126/78 94 L 11/06/17 08:31 11/06/17 08:50 11/06/17 08:31 11/06/17 08:50 11/06/17 08:31 - Medications Medications: Current Medications Acetaminophen (Tylenol 325mg Tab) 650 mg PO Q6 PRN PRN Reason: temp 101 Acetylcysteine (Acetylcysteine 20%) 2 ml INH RBID [facility] Last Admin: 11/06/17 07:28 Dose: 2 ml Albuterol/Ipratropium (Duoneb 3 Mg/0.5 Mg (3 Ml) Ud) 3 ml INH Q4 [facility] Alprazolam (Xanax) 0.5 mg PO HS PRN PRN Reason: Anxiety Aspirin (Ecotrin) 81 mg PO DAILY [facility] Last Admin: 11/06/17 08:49 Dose: 81 mg Atorvastatin Calcium (Lipitor) 20 mg PO HS [facility] Last Admin: 11/05/17 22:13 Dose: 20 mg Cholecalciferol (Vitamin D) 2,000 intlu PO DAILY [facility] Last Admin: 11/06/17 08:50 Dose: 2,000 intlu Diltiazem HCl (Cardizem Cd) 240 mg PO DAILY [facility] Last Admin: 11/06/17 08:49 Dose: 240 mg Home Med (Mycophenolate Sodium [Mycophenolic Acid]) 540 mg PO Q12 [facility] Last Admin: 11/06/17 08:46 Dose: 540 mg Home Med (Tacrolimus [Astagraf Xl]) 3 mg PO DAILY@0700 [facility] Last Admin: 11/06/17 08:48 Dose: 3 mg Azithromycin 500 mg/ Sodium (Chloride) 250 mls @ 250 mls/hr IVPB DAILY [facility] PRN Reason: Protocol Last Admin: 11/06/17 08:56 Dose: 250 mls/hr Ceftriaxone Sodium 1 gm/ (Sodium Chloride) 100 mls @ 100 mls/hr IVPB DAILY [facility] PRN Reason: Protocol Last Admin: 11/06/17 08:51 Dose: 100 mls/hr Insulin Human Lispro (Humalog) 0 units SC ACHS [facility] PRN Reason: Protocol Last Admin: 11/06/17 08:44 Dose: 3 units Insulin Lispro Protam/Lispro Human (Humalog Mix 75/25) 30 units SC BRK [facility] Last Admin: 11/06/17 08:43 Dose: 30 units Insulin Lispro Protam/Lispro Human (Humalog Mix 75/25) 20 units SC DIN [facility] Last Admin: 11/05/17 18:00 Dose: 20 units Methylprednisolone (Solu-Medrol) 40 mg IVP Q8H [facility] Last Admin: 11/06/17 03:43 Dose: 40 mg Metoprolol Tartrate (Lopressor) 100 mg PO Q12 [facility] Last Admin: 11/06/17 08:50 Dose: 100 mg Multivitamins/Minerals (Therapeutic-M Tab) 1 tab PO DAILY [facility] Last Admin: 11/06/17 08:49 Dose: 1 tab Pantoprazole Sodium (Protonix Ec Tab) 40 mg PO ACL [facility] Last Admin: 11/05/17 12:00 Dose: 40 mg Prednisone (Prednisone Tab) 5 mg PO DAILY [facility] Last Admin: 11/06/17 08:50 Dose: 5 mg Pregabalin (Lyrica) 100 mg PO HS [facility] Last Admin: 11/05/17 22:13 Dose: 100 mg Promethazine HCl/Codeine (Phenergan/Codeine Oral Syrup) 10 ml PO Q4 [facility] Tramadol HCl (Ultram) 50 mg PO DAILY PRN PRN Reason: Pain, severe (8-10) Trimethoprim/Sulfamethoxazole (Bactrim Ds Tab) 1 tab PO MWF [facility] PRN Reason: Protocol Last Admin: 11/04/17 08:41 Dose: 1 tab - Labs Labs: 11/04/17 05:00 11/05/17 06:15 PT 28.9 Seconds (9.8-13.1) H D 11/05/17 06:15 INR 2.6 (0.9-1.2) H D 11/05/17 06:15 - Constitutional Appears: Chronically Ill - Head Exam Head Exam: ATRAUMATIC, NORMAL INSPECTION, NORMOCEPHALIC - Eye Exam Eye Exam: EOMI, Normal appearance, PERRL Pupil Exam: NORMAL ACCOMODATION, PERRL - ENT Exam ENT Exam: Mucous Membranes Moist, Normal Exam - Neck Exam Neck Exam: Full ROM, Normal Inspection. absent: Lymphadenopathy - Respiratory Exam Respiratory Exam: Decreased Breath Sounds, Prolonged Expiratory Phase, Rales, Wheezes, NORMAL BREATHING PATTERN - Cardiovascular Exam Cardiovascular Exam: REGULAR RHYTHM, +S1, +S2. absent: Murmur - GI/Abdominal Exam GI & Abdominal Exam: Soft, Normal Bowel Sounds. absent: Tenderness - Rectal Exam Rectal Exam: NORMAL INSPECTION - Extremities Exam Extremities Exam: Full ROM, Normal Capillary Refill, Normal Inspection. absent : Joint Swelling, Pedal Edema - Back Exam Back Exam: NORMAL INSPECTION - Neurological Exam Neurological Exam: Alert, Awake, CN II-XII Intact, Normal Gait, Oriented x3 - Psychiatric Exam Psychiatric exam: Normal Affect, Normal Mood - Skin Skin Exam: Dry, Intact, Normal Color, Warm Assessment and Plan - Assessment and Plan (Free Text) Assessment: ACUTE EXAC OF ASTHMA URI S/P RENAL TRANSPLANT MUCUS PLUGGING OF AIRWAYS DM--UNCONTROLLED Plan: CONTINUE RX ORDERED MAY BENEFIT FROM STAY AT TCU FOR FURTHER RX PRIOR TO D/C HOME
[2017-11-06] MEDS: Pantoprazole 40 mg EC Tab PO SCH (11:45)
[2017-11-06] MEDS: Promethazine/Cod 6.25mg-10mg/5ml Syr UD PO SCH ×3 (13:34→21:35)
[2017-11-06 14:08] LABS: INR 4.9 (0.9-1.2); PROTHROMBIN TIME 56.7 Seconds (9.8-13.1)
[2017-11-07] MEDS: Albuterol-Ipratrop 3 mg / 0.5 (3 ml) UD INH SCH ×4 (01:14→11:29)
[2017-11-07] MEDS: Promethazine/Cod 6.25mg-10mg/5ml Syr UD PO SCH ×4 (01:51→14:51)
[2017-11-07] MEDS: MethylPREDNISolone 40 mg Vial IVP SCH ×2 (04:26→13:11)
[2017-11-07 05:55] LABS: INR 4.4 (0.9-1.2)
[2017-11-07 05:56] LABS: PROTHROMBIN TIME 50.7 Seconds (9.8-13.1)
[2017-11-07] MEDS: Acetylcysteine 20% Inhal Soln (4ml) INH SCH (07:21)
[2017-11-07] MEDS: TACROLIMUS 1 MG PO SCH (07:55)
--- NOTE | 2017-11-07 08:47 | CP.PCM.PN ---
Subjective - Date & Time of Evaluation Date of Evaluation: 11/07/17 Time of Evaluation: 08:49 - Subjective Subjective: CONTINUES TO COUGH AND HAS SOB AT REST NO CHEST PAINS Objective - Vital Signs/Intake and Output Vital Signs (last 24 hours): Temp Pulse Resp BP Pulse Ox 97.4 F L 72 20 133/72 92 L 11/07/17 05:00 11/07/17 05:00 11/07/17 05:00 11/07/17 05:00 11/07/17 05:00 - Medications Medications: Current Medications Acetaminophen (Tylenol 325mg Tab) 650 mg PO Q6 PRN PRN Reason: temp 101 Acetylcysteine (Acetylcysteine 20%) 2 ml INH RBID [facility] Last Admin: 11/07/17 07:21 Dose: 2 ml Albuterol/Ipratropium (Duoneb 3 Mg/0.5 Mg (3 Ml) Ud) 3 ml INH RQ4 [facility] Last Admin: 11/07/17 07:21 Dose: 3 ml Alprazolam (Xanax) 0.5 mg PO HS PRN PRN Reason: Anxiety Aspirin (Ecotrin) 81 mg PO DAILY [facility] Last Admin: 11/06/17 08:49 Dose: 81 mg Atorvastatin Calcium (Lipitor) 20 mg PO HS [facility] Last Admin: 11/06/17 21:36 Dose: 20 mg Cholecalciferol (Vitamin D) 2,000 intlu PO DAILY [facility] Last Admin: 11/06/17 08:50 Dose: 2,000 intlu Diltiazem HCl (Cardizem Cd) 240 mg PO DAILY [facility] Last Admin: 11/06/17 08:49 Dose: 240 mg Home Med (Mycophenolate Sodium [Mycophenolic Acid]) 540 mg PO Q12 [facility] Last Admin: 11/06/17 21:37 Dose: 540 mg Home Med (Tacrolimus [Astagraf Xl]) 3 mg PO DAILY@0700 [facility] Last Admin: 11/06/17 08:48 Dose: 3 mg Azithromycin 500 mg/ Sodium (Chloride) 250 mls @ 250 mls/hr IVPB DAILY [facility] PRN Reason: Protocol Last Admin: 11/06/17 08:56 Dose: 250 mls/hr Ceftriaxone Sodium 1 gm/ (Sodium Chloride) 100 mls @ 100 mls/hr IVPB DAILY [facility] PRN Reason: Protocol Last Admin: 11/06/17 08:51 Dose: 100 mls/hr Insulin Human Lispro (Humalog) 0 units SC ACHS [facility] PRN Reason: Protocol Last Admin: 11/06/17 21:38 Dose: Not Given Insulin Lispro Protam/Lispro Human (Humalog Mix 75/25) 30 units SC BRK [facility] Last Admin: 11/06/17 08:43 Dose: 30 units Insulin Lispro Protam/Lispro Human (Humalog Mix 75/25) 20 units SC DIN [facility] Last Admin: 11/06/17 17:29 Dose: 20 units Methylprednisolone (Solu-Medrol) 40 mg IVP Q8H [facility] Last Admin: 11/07/17 04:26 Dose: 40 mg Metoprolol Tartrate (Lopressor) 100 mg PO Q12 [facility] Last Admin: 11/06/17 21:36 Dose: 100 mg Multivitamins/Minerals (Therapeutic-M Tab) 1 tab PO DAILY [facility] Last Admin: 11/06/17 08:49 Dose: 1 tab Pantoprazole Sodium (Protonix Ec Tab) 40 mg PO ACL [facility] Last Admin: 11/06/17 11:45 Dose: 40 mg Prednisone (Prednisone Tab) 5 mg PO DAILY [facility] Last Admin: 11/06/17 08:50 Dose: 5 mg Pregabalin (Lyrica) 100 mg PO HS [facility] Last Admin: 11/06/17 21:36 Dose: 100 mg Promethazine HCl/Codeine (Phenergan/Codeine Oral Syrup) 10 ml PO Q4 [facility] Last Admin: 11/07/17 06:09 Dose: Not Given Tramadol HCl (Ultram) 50 mg PO DAILY PRN PRN Reason: Pain, severe (8-10) Trimethoprim/Sulfamethoxazole (Bactrim Ds Tab) 1 tab PO MWF [facility] PRN Reason: Protocol Last Admin: 11/04/17 08:41 Dose: 1 tab - Labs Labs: 11/04/17 05:00 11/05/17 06:15 PT 50.7 Seconds (9.8-13.1) H* D 11/07/17 04:20 INR 4.4 (0.9-1.2) H 11/07/17 04:20 - Constitutional Appears: In Acute Distress - Head Exam Head Exam: ATRAUMATIC, NORMAL INSPECTION, NORMOCEPHALIC - Eye Exam Eye Exam: EOMI, Normal appearance, PERRL Pupil Exam: NORMAL ACCOMODATION, PERRL - ENT Exam ENT Exam: Mucous Membranes Moist, Normal Exam - Neck Exam Neck Exam: Full ROM, Normal Inspection. absent: Lymphadenopathy - Respiratory Exam Respiratory Exam: Decreased Breath Sounds, Prolonged Expiratory Phase, Rales, Wheezes, NORMAL BREATHING PATTERN - Cardiovascular Exam Cardiovascular Exam: REGULAR RHYTHM, +S1, +S2. absent: Murmur - GI/Abdominal Exam GI & Abdominal Exam: Soft, Normal Bowel Sounds. absent: Tenderness - Rectal Exam Rectal Exam: NORMAL INSPECTION - Extremities Exam Extremities Exam: Full ROM, Normal Capillary Refill, Normal Inspection, Pedal Edema. absent: Joint Swelling - Back Exam Back Exam: NORMAL INSPECTION - Neurological Exam Neurological Exam: Alert, Awake, CN II-XII Intact, Normal Gait, Oriented x3 - Psychiatric Exam Psychiatric exam: Normal Affect, Normal Mood - Skin Skin Exam: Dry, Intact, Normal Color, Warm Assessment and Plan - Assessment and Plan (Free Text) Assessment: ACUTE ASTHMA URI UNCONTROLLED TYPE 2 DM S/P RENAL TRANSPLANT PAROXYSMAL A.FIB--CHRONIC ELEVATED PT/INR--DUE TO COUMADIN RX Plan: CONTINUE CURRENT RX HPLD COUMADIN FOR NOW DAILY PT/INR [employer] FOR TCU
[2017-11-07 08:48] VITALS: TEMP 97.7
[2017-11-07] MEDS: diltiaZEM 240 mg/24 Hours CD Cap PO SCH (09:56)
[2017-11-07] MEDS: Cholecalciferol 1,000 INTLU TAB PO SCH (09:56)
[2017-11-07] MEDS: Multivitamin With Minerals Tab PO SCH (09:56)
[2017-11-07] MEDS: Tmp-Smz 800 mg-160 mg DS Tab PO SCH (09:57)
[2017-11-07] MEDS: Insulin Lispro (humaLOG) 100 Units/ml Inj SC SCH ×2 (09:58→14:49)
[2017-11-07] MEDS: Insulin Lispro Mix 75/25 100 units/ml (HumaLog) 10ml SC SCH (09:58)
[2017-11-07] MEDS: MYCOPHENOLIC ACID 180 MG PO SCH (11:57)
[2017-11-07 12:33] VITALS: BP 154/76; PULSE 77; RESP 20; O2SAT 97
[2017-11-07] MEDS: Azithromycin 500 MG in Sodium Chloride 0.9% 250 ML IVPB SCH (12:51)
[2017-11-07] MEDS: Pantoprazole 40 mg EC Tab PO SCH (12:52)
--- NOTE | 2017-11-08 07:59 | CP.PCM.DIS ---
Provider - Provider Date of Admission: 11/03/17 14:56 Attending physician: Luis Alberto Dozier MD Time Spent in preparation of Discharge (in minutes): 35 Diagnosis - Discharge Diagnosis (1) Renal transplant recipient Status: Acute (2) Asthma Status: Acute (3) CAD (coronary artery disease) Status: Acute (4) CVA (cerebral vascular accident) Status: Acute (5) Cough Status: Acute (6) Dyspnea and respiratory abnormalities Status: Acute (7) Hx of CABG Status: Acute (8) Hypertension Status: Acute (9) Upper respiratory infection Status: Acute Hospital Course - Lab Results Lab Results: Micro Results 11/05/17 01:45 Sputum Gram Stain - Final 11/05/17 01:45 Sputum Sputum Culture - Final NORMAL ORAL FABIO 11/04/17 11:38 Blood-Venous Blood Culture - Preliminary NO GROWTH AFTER 3 DAYS 11/04/17 11:38 Blood-Venous Blood Culture - Preliminary NO GROWTH AFTER 3 DAYS 11/03/17 13:54 Urine Urine Culture - Final No Growth (<1,000 CFU/ML) Most Recent Lab Values WBC 6.8 K/uL (4.8-10.8) 11/04/17 05:00 RBC 5.05 Mil/uL (4.40-5.90) 11/04/17 05:00 Hgb 14.3 g/dL (12.0-18.0) 11/04/17 05:00 Hct 44.1 % (35.0-51.0) 11/04/17 05:00 MCV 87.2 fl (80.0-94.0) 11/04/17 05:00 MCH 28.3 pg (27.0-31.0) 11/04/17 05:00 MCHC 32.5 g/dL (33.0-37.0) L 11/04/17 05:00 RDW 16.1 % (11.5-14.5) H 11/04/17 05:00 Plt Count 163 K/uL (130-400) 11/04/17 05:00 MPV 8.8 fl (7.2-11.7) 11/03/17 14:15 Neut % (Auto) 87.7 % (50.0-75.0) H 11/03/17 14:15 Lymph % (Auto) 2.2 % (20.0-40.0) L 11/03/17 14:15 [place] % (Auto) 8.6 % (0.0-10.0) 11/03/17 14:15 Eos % (Auto) 0.8 % (0.0-4.0) 11/03/17 14:15 Baso % (Auto) 0.7 % (0.0-2.0) 11/03/17 14:15 Neut # (Auto) 5.7 K/uL (1.8-7.0) 11/03/17 14:15 Lymph # (Auto) 0.1 K/uL (1.0-4.3) L 11/03/17 14:15 [place] # (Auto) 0.6 K/uL (0.0-0.8) 11/03/17 14:15 Eos # (Auto) 0.1 K/uL (0.0-0.7) 11/03/17 14:15 Baso # (Auto) 0.0 K/uL (0.0-0.2) 11/03/17 14:15 Neutrophils % (Manual) 86 % (42-75) H 11/03/17 14:15 Lymphocytes % (Manual) 3 % (20-50) L 11/03/17 14:15 Monocytes % (Manual) 8 % (0-10) 11/03/17 14:15 Eosinophils % (Manual) 2 % (0-7) 11/03/17 14:15 Basophils % (Manual) 1 % (0-2) 11/03/17 14:15 Platelet Estimate Normal (NORMAL) 11/03/17 14:15 Anisocytosis (manual) Slight 11/03/17 14:15 PT 50.7 Seconds (9.8-13.1) H* D 11/07/17 04:20 INR 4.4 (0.9-1.2) H 11/07/17 04:20 Sodium 134 mmol/l (132-148) 11/05/17 06:15 Potassium 4.7 MMOL/L (3.6-5.0) 11/05/17 06:15 Chloride 99 mmol/L (98-107) 11/05/17 06:15 Carbon Dioxide 27 mmol/L (22-30) 11/05/17 06:15 Anion Gap 13 (10-20) 11/05/17 06:15 BUN 34 mg/dl (9-20) H 11/05/17 06:15 Creatinine 1.2 mg/dl (0.8-1.5) 11/05/17 06:15 Est GFR ( Amer) > 60 11/05/17 06:15 Est GFR (Non-Af Amer) > 60 11/05/17 06:15 POC Glucose (mg/dL) 413 mg/dL (65-110) H* 11/07/17 11:34 Random Glucose 350 mg/dL (75-110) H 11/05/17 06:15 Calcium 10.1 mg/dL (8.4-10.2) 11/05/17 06:15 Total Bilirubin 0.6 mg/dl (0.2-1.3) 11/03/17 14:15 AST 29 U/L (17-59) 11/03/17 14:15 ALT 31 U/L (21-72) 11/03/17 14:15 Alkaline Phosphatase 99 U/L (38-126) 11/03/17 14:15 Troponin I 0.0340 ng/mL (0.00-0.120) 11/03/17 14:15 NT-Pro-B Natriuret Pep 1310 pg/ml (0-900) H 11/03/17 18:00 Total Protein 6.6 G/DL (6.3-8.2) 11/03/17 14:15 Albumin 3.8 g/dL (3.5-5.0) 11/03/17 14:15 Globulin 2.8 gm/dL (2.2-3.9) 11/03/17 14:15 Albumin/Globulin Ratio 1.3 (1.0-2.1) 11/03/17 14:15 Triglycerides 97 mg/DL (0-149) D 11/04/17 05:00 Cholesterol 165 mg/dL (0-199) 11/04/17 05:00 LDL Cholesterol Direct 114 mg/dL (0-129) 11/04/17 05:00 HDL Cholesterol 36 MG/DL (30-70) 11/04/17 05:00 Urine Color Yellow (YELLOW) 11/03/17 13:54 Urine Clarity Slighty-cloudy (Clear) 11/03/17 13:54 Urine pH 6.0 (5.0-8.0) 11/03/17 13:54 Ur Specific [place] 1.022 (1.003-1.030) 11/03/17 13:54 Urine Protein 30 mg/dL (NEGATIVE) 11/03/17 13:54 Urine Glucose (UA) >=500 mg/dL (Normal) 11/03/17 13:54 Urine Ketones Negative mg/dL (NEGATIVE) 11/03/17 13:54 Urine Blood Negative (NEGATIVE) 11/03/17 13:54 Urine Nitrate Negative (NEGATIVE) 11/03/17 13:54 Urine Bilirubin Negative (NEGATIVE) 11/03/17 13:54 Urine Urobilinogen 0.2-1.0 mg/dL (0.2-1.0) 11/03/17 13:54 Ur Leukocyte Esterase Small [place]/uL (Negative) 11/03/17 13:54 Urine RBC (Auto) 2 /hpf (0-3) 11/03/17 13:54 Urine Microscopic WBC 9 /hpf (0-5) H 11/03/17 13:54 Ur Squamous Epith Cells 2 /hpf (0-5) 11/03/17 13:54 Amorphous Sediment Few /ul (<OCC) H 11/03/17 13:54 Urine Bacteria Few (<OCC) H 11/03/17 13:54 Granular Casts (Auto) 1 /lpf (0-1) 11/03/17 13:54 Influenza Typ A,B (EIA) Negative for flu a/b (NEGATIVE) 11/03/17 13:54 - Hospital Course Hospital Course: SOB AND COUGH PERSIST Discharge Exam - Head Exam Head Exam: ATRAUMATIC, NORMAL INSPECTION, NORMOCEPHALIC - Eye Exam Eye Exam: EOMI, Normal appearance, PERRL Pupil Exam: NORMAL ACCOMODATION, PERRL - Respiratory Exam Respiratory Exam: Decreased Breath Sounds, Rales, Wheezes, NORMAL BREATHING PATTERN - GI/Abdominal Exam GI & Abdominal Exam: Normal Bowel Sounds - Rectal Exam Rectal Exam: NORMAL INSPECTION - Extremities Exam Extremities exam: pedal edema - Neurological Exam Neurological exam: Alert, CN II-XII Intact, Normal Gait, Oriented x3, Reflexes Normal - Psychiatric Exam Psychiatric exam: Normal Affect, Normal Mood - Skin Skin Exam: Dry, Intact, Normal Color, Warm Discharge Plan - Discharge Medications Prescriptions: cefTRIAXone 1 gm [Rocephin 1 gram IVPB] 1 gm IVPB DAILY #5 bag Azithromycin 500MG/NS 250ml [Zithromax 500mg in NS] 500 mg IV DAILY #5 bag - Follow Up Plan Condition: FAIR Disposition: TRANSF TO SNF Patient education suggested?: Yes Additional Instructions: TRANSFER TO TRANSITIONAL CARE UNIT FOR IV ANTIBIOTICS AND STEROIDS
== END 2017-11-07 15:25 | DRG 202 ==
LOC: H.ER 12:17 → H.ERHOLD 14:56 → H.TEL 22:57
PROVIDERS: ADMIT Internal Medicine Pulmonary Disease; ATTEND Internal Medicine Pulmonary Disease
DX: J45.21 Mild intermittent asthma with (acute) exacerbation (principal); I13.0 Hypertensive heart and chronic kidney disease with heart failure and stage 1 through stage 4 chronic kidney disease, or unspecified chronic kidney disease; Z94.0 Kidney transplant status; N39.0 Urinary tract infection, site not specified; E11.22 Type 2 diabetes mellitus with diabetic chronic kidney disease; E11.42 Type 2 diabetes mellitus with diabetic polyneuropathy; E11.65 Type 2 diabetes mellitus with hyperglycemia; I48.0 Paroxysmal atrial fibrillation; N18.9 Chronic kidney disease, unspecified; I25.10 Atherosclerotic heart disease of native coronary artery without angina pectoris; E78.00 Pure hypercholesterolemia, unspecified; E78.5 Hyperlipidemia, unspecified; F41.9 Anxiety disorder, unspecified; I50.9 Heart failure, unspecified; Z95.5 Presence of coronary angioplasty implant and graft; Z79.01 Long term (current) use of anticoagulants; Z95.1 Presence of aortocoronary bypass graft; J06.9 Acute upper respiratory infection, unspecified; T17.998A Other foreign object in respiratory tract, part unspecified causing other injury, initial encounter

== ENCOUNTER 2017-11-07 14:10 | Inpatient (IN) | payer OTHER, BC ==
[2017-11-07 15:42] VITALS: BMI 34.6
[2017-11-07] MEDS: Insulin Lispro Mix 75/25 100 units/ml (HumaLog) 10ml SC SCH (18:15)
[2017-11-07] MEDS: Albuterol-Ipratrop 3 mg / 0.5 (3 ml) UD INH SCH (19:17)
[2017-11-07] MEDS: Acetylcysteine 20% Inhal Soln (4ml) INH SCH (19:19)
[2017-11-07] MEDS: MethylPREDNISolone 40 mg Vial IVP SCH (20:30)
[2017-11-07] MEDS: MYCOPHENOLATE SODIUM 180 MG PO SCH (22:06)
[2017-11-07] MEDS: Promethazine/Cod 6.25mg-10mg/5ml Syr UD PO SCH (22:07)
[2017-11-07] MEDS: Insulin Lispro (humaLOG) 100 Units/ml Inj SC SCH (22:10)
[2017-11-08] MEDS: Albuterol-Ipratrop 3 mg / 0.5 (3 ml) UD INH SCH ×6 (00:12→19:39)
[2017-11-08] MEDS: Promethazine/Cod 6.25mg-10mg/5ml Syr UD PO SCH ×6 (02:00→20:59)
[2017-11-08] MEDS: MethylPREDNISolone 40 mg Vial IVP SCH ×3 (04:30→20:20)
[2017-11-08] MEDS: TACROLIMUS PO SCH ×2 (06:52)
[2017-11-08] MEDS: Insulin Lispro (humaLOG) 100 Units/ml Inj SC SCH ×4 (06:53→21:02)
[2017-11-08] MEDS: Acetylcysteine 20% Inhal Soln (4ml) INH SCH ×2 (08:22→19:39)
[2017-11-08] MEDS: diltiaZEM 240 mg/24 Hours CD Cap PO SCH (08:34)
[2017-11-08] MEDS: Insulin Lispro Mix 75/25 100 units/ml (HumaLog) 10ml SC SCH ×2 (08:34→17:17)
[2017-11-08] MEDS: MYCOPHENOLATE SODIUM 180 MG PO SCH ×2 (08:35→20:59)
[2017-11-08] MEDS: Multivitamin With Minerals Tab PO SCH (08:36)
[2017-11-08] MEDS: Cholecalciferol 1,000 INTLU TAB PO SCH (08:36)
[2017-11-08] MEDS ORDERED: cefTRIAXone IV 1 gm in Dextros 50 ML BAG IVPB SCH (09:00)
[2017-11-08 09:42] LABS: INR 2.8 (0.9-1.2); PROTHROMBIN TIME 31.5 Seconds (9.8-13.1)
[2017-11-08] MEDS: Pantoprazole 40 mg EC Tab PO SCH (11:44)
[2017-11-08] MEDS: Hydrocortisone 2.5% (Rectal) CREAM PR SCH (17:11)
[2017-11-08] MEDS: cefTRIAXone 1 gm/NS 100ML IVPB SCH (17:12)
[2017-11-08] MEDS: AZITHROMYCIN 500 MG/NS 250 ML IVPB SCH (21:40)
[2017-11-09] MEDS: Albuterol-Ipratrop 3 mg / 0.5 (3 ml) UD INH SCH ×7 (00:29→23:29)
[2017-11-09] MEDS: Promethazine/Cod 6.25mg-10mg/5ml Syr UD PO SCH ×6 (01:30→20:26)
[2017-11-09] MEDS: MethylPREDNISolone 40 mg Vial IVP SCH ×3 (04:29→20:22)
[2017-11-09] MEDS: Insulin Lispro (humaLOG) 100 Units/ml Inj SC SCH ×4 (06:48→21:54)
[2017-11-09] MEDS: TACROLIMUS PO SCH ×2 (06:49)
[2017-11-09 07:00] LABS: INR 2.7 (0.9-1.2); PROTHROMBIN TIME 30.3 Seconds (9.8-13.1)
[2017-11-09 07:07] LABS: HEMOGLOBIN 14.8 g/dL (12.0-18.0); MEAN CELL VOLUME 86.2 fl (80.0-94.0); MEAN CORPUSCULAR HEMOGLOBIN 28.1 pg (27.0-31.0); MEAN CORPUSCULAR HGB CONC 32.6 g/dL (33.0-37.0); RBC 5.28 Mil/uL (4.40-5.90); RED CELL DISTRIBUTION WIDTH 15.9 % (11.5-14.5); WHITE BLOOD COUNT 9.8 K/uL (4.8-10.8)
[2017-11-09] MEDS: Acetylcysteine 20% Inhal Soln (4ml) INH SCH ×2 (07:13→19:30)
[2017-11-09 07:21] LABS: BLOOD UREA NITROGEN 40 mg/dl (9-20); CALCIUM 9.7 mg/dL (8.4-10.2); GFR AFRICAN-AMERICAN > 60; GFR NON-AFRICAN AMERICAN > 60
--- NOTE | 2017-11-09 08:33 | HP ---
HISTORY OF PRESENT ILLNESS: Mr. Brown is a 57 year-old male who was admitted originally to the medical floor then transferred to the Transitional Care Unit because of shortness of breath, exercise intolerance, cough, and chest tightness for several days prior to presentation. He was admitted to telemetry, treated for several days with IV antibiotics as well as bronchodilators and oxygen, but symptoms, however, worsened, was therefore transferred to Transitional Care Unit for IV antibiotic therapy, physical therapy, and appropriate medical care. PAST MEDICAL HISTORY: Coronary artery bypass graft, status post recent renal transplantation, paroxysmal atrial fibrillation, asthma, coronary artery disease, congestive heart failure, diabetes mellitus, hypertension, hyperlipidemia, anxiety disorder, and peripheral neuropathy. FAMILY HISTORY: Noncontributory. SOCIAL HISTORY: He does not drink or smoke and lives at home with his . REVIEW OF SYSTEMS: Essentially remarkable for unsteadiness of gait, occasional shortness of breath, and exercise intolerance. PHYSICAL EXAMINATION: GENERAL: The patient is alert and oriented, still has some shortness of breath at rest and on mild exertion. VITAL SIGNS: Blood pressure of 154/76, pulse of 77, and respiratory rate of 20. He is febrile. O2 sat is 97% on room air. SKIN: Shows fair turgor. HEENT: Pupils are equal and reactive to light and accommodation. Mouth shows fair hygiene with mucous engorgement of pharynx. NECK: JVP flat. LUNGS: Poor aeration bilaterally with scattered rales and wheezing and dullness at both bases. HEART: Regular. No murmurs or gallops. There is a scar of coronary artery bypass graft over the anterior chest wall. ABDOMEN: Soft and nontender, no organomegaly. EXTREMITIES: Show 2+ pitting pedal edema. CENTRAL NERVOUS SYSTEM: The patient is alert and oriented, still has unsteadiness of gait, and otherwise, no gross deficits. LABORATORY DATA: WBC 6.8, hemoglobin 14.3, and platelet count 163,000. Electrolytes are pending. Serum glucose is 413. INR is 4.4. IMPRESSION: Acute exacerbation of intermittent asthma, upper respiratory tract infection, history of coronary artery bypass graft, history of paroxysmal atrial fibrillation (chronic), coagulopathy due to Coumadin therapy, hypertension, diabetes mellitus poorly controlled with hyperglycemia, history of peripheral vascular disease, history of cerebrovascular accident in the past, and history of cervical spine surgery. PLAN: Continue IV antibiotics as well as bronchodilators and oxygen. Physical therapy and occupational therapy. We will monitor PT/INR and appropriately give Coumadin (this is for atrial fibrillation and cerebrovascular accident). The patient will be discharged home once clinically stable. Luis Alberto Dozier MD
[2017-11-09] MEDS: Cholecalciferol 1,000 INTLU TAB PO SCH (08:49)
[2017-11-09] MEDS: MYCOPHENOLATE SODIUM 180 MG PO SCH ×2 (08:49→20:22)
[2017-11-09] MEDS: diltiaZEM 240 mg/24 Hours CD Cap PO SCH (08:50)
[2017-11-09] MEDS: Multivitamin With Minerals Tab PO SCH (08:50)
[2017-11-09] MEDS: Insulin Lispro Mix 75/25 100 units/ml (HumaLog) 10ml SC SCH ×2 (08:51→16:46)
[2017-11-09] MEDS: Hydrocortisone 2.5% (Rectal) CREAM PR SCH ×2 (08:52→16:45)
[2017-11-09] MEDS: Tmp-Smz 800 mg-160 mg DS Tab PO SCH (08:58)
--- NOTE | 2017-11-09 09:36 | CP.PCM.PN ---
Subjective - Date & Time of Evaluation Date of Evaluation: 11/09/17 Time of Evaluation: 09:37 - Subjective Subjective: STILL COUGHING UNABLE TO EXPECTORATE SPUTUM HAD AN EPISODE OF DIARRHEA TODAY Objective - Vital Signs/Intake and Output Vital Signs (last 24 hours): Temp Pulse Resp BP Pulse Ox 97.2 F L 70 18 148/80 100 11/09/17 08:07 11/09/17 08:50 11/09/17 08:07 11/09/17 08:50 11/09/17 08:07 - Medications Medications: Current Medications Acetaminophen (Tylenol 325mg Tab) 650 mg PO Q6 PRN PRN Reason: temp 101 Acetylcysteine (Acetylcysteine 20%) 2 ml INH RBID [facility] Last Admin: 11/09/17 07:13 Dose: 2 ml Albuterol/Ipratropium (Duoneb 3 Mg/0.5 Mg (3 Ml) Ud) 3 ml INH RQ4 [facility] Last Admin: 11/09/17 07:13 Dose: 3 ml Alprazolam (Xanax) 0.5 mg PO HS PRN PRN Reason: Anxiety Aspirin (Ecotrin) 81 mg PO DAILY [facility] Last Admin: 11/09/17 08:50 Dose: 81 mg Atorvastatin Calcium (Lipitor) 20 mg PO HS [facility] Last Admin: 11/08/17 21:01 Dose: 20 mg Cholecalciferol (Vitamin D) 2,000 intlu PO DAILY [facility] Last Admin: 11/09/17 08:49 Dose: 2,000 intlu Diltiazem HCl (Cardizem Cd) 240 mg PO DAILY [facility] Last Admin: 11/09/17 08:50 Dose: 240 mg Furosemide (Lasix) 40 mg PO DAILY [facility] Last Admin: 11/09/17 08:50 Dose: 40 mg Home Med (Mycophenolate Sodium [Mycophenolic Acid]) 540 mg PO Q12 [facility] Last Admin: 11/09/17 08:49 Dose: 540 mg Home Med (Patient's Own Medication) 3 unit PO DAILY@0700 [facility] Last Admin: 11/09/17 06:49 Dose: 3 unit Hydrocortisone (Anusol-Hc) 1 applic PA BID [facility] Last Admin: 11/09/17 08:52 Dose: 1 applic Ceftriaxone Sodium 1 gm/ (Sodium Chloride) 100 mls @ 100 mls/hr IVPB DAILY@ 1700 [facility] Last Admin: 11/08/17 17:12 Dose: 100 mls/hr Azithromycin 500 mg/ Sodium (Chloride) 250 mls @ 250 mls/hr IVPB DAILY@2100 [facility] Last Admin: 11/08/17 21:40 Dose: 250 mls/hr Insulin Human Lispro (Humalog) 0 units SC ACHS [facility] PRN Reason: Protocol Last Admin: 11/09/17 06:48 Dose: 6 u Insulin Lispro Protam/Lispro Human (Humalog Mix 75/25) 20 units SC DIN [facility] Last Admin: 11/08/17 17:17 Dose: 20 units Insulin Lispro Protam/Lispro Human (Humalog Mix 75/25) 30 units SC BRK [facility] Last Admin: 11/09/17 08:51 Dose: 30 units Loperamide HCl (Imodium) 4 mg PO ONCE ONE Stop: 11/09/17 09:34 Methylprednisolone (Solu-Medrol) 40 mg IVP Q8H [facility] Last Admin: 11/09/17 04:29 Dose: 40 mg Metoprolol Tartrate (Lopressor) 100 mg PO Q12 [facility] Last Admin: 11/09/17 08:50 Dose: 100 mg Multivitamins/Minerals (Therapeutic-M Tab) 1 tab PO DAILY [facility] Last Admin: 11/09/17 08:50 Dose: 1 tab Pantoprazole Sodium (Protonix Ec Tab) 40 mg PO ACL [facility] Last Admin: 11/08/17 11:44 Dose: 40 mg Prednisone (Prednisone Tab) 5 mg PO DAILY [facility] Last Admin: 11/09/17 08:50 Dose: 5 mg Pregabalin (Lyrica) 100 mg PO HS [facility] Last Admin: 11/08/17 21:01 Dose: 100 mg Promethazine HCl/Codeine (Phenergan/Codeine Oral Syrup) 10 ml PO Q4 [facility] Last Admin: 11/09/17 04:55 Dose: 10 ml Tramadol HCl (Ultram) 50 mg PO DAILY PRN PRN Reason: Pain, severe (8-10) Trimethoprim/Sulfamethoxazole (Bactrim Ds Tab) 1 tab PO MWF [facility] PRN Reason: Protocol Last Admin: 11/09/17 08:58 Dose: 1 tab Warfarin Sodium (Coumadin) 2 mg PO QD5 [facility] PRN Reason: Protocol Stop: 11/09/17 17:01 - Labs Labs: 11/09/17 06:00 11/09/17 06:00 PT 30.3 Seconds (9.8-13.1) H 11/09/17 06:00 INR 2.7 (0.9-1.2) H 11/09/17 06:00 - Constitutional Appears: Chronically Ill - Head Exam Head Exam: ATRAUMATIC, NORMAL INSPECTION, NORMOCEPHALIC - Eye Exam Eye Exam: EOMI, Normal appearance, PERRL Pupil Exam: NORMAL ACCOMODATION, PERRL - ENT Exam ENT Exam: Mucous Membranes Moist, Normal Exam - Neck Exam Neck Exam: Full ROM, Normal Inspection. absent: Lymphadenopathy - Respiratory Exam Respiratory Exam: Decreased Breath Sounds, Prolonged Expiratory Phase, Rales, NORMAL BREATHING PATTERN - Cardiovascular Exam Cardiovascular Exam: REGULAR RHYTHM, +S1, +S2. absent: Murmur - GI/Abdominal Exam GI & Abdominal Exam: Soft, Normal Bowel Sounds. absent: Tenderness - Rectal Exam Rectal Exam: NORMAL INSPECTION - Extremities Exam Extremities Exam: Full ROM, Normal Capillary Refill, Normal Inspection, Pedal Edema. absent: Joint Swelling - Back Exam Back Exam: NORMAL INSPECTION - Neurological Exam Neurological Exam: Alert, Awake, CN II-XII Intact, Normal Gait, Oriented x3 - Psychiatric Exam Psychiatric exam: Normal Affect, Normal Mood - Skin Skin Exam: Dry, Intact, Normal Color, Warm Assessment and Plan - Assessment and Plan (Free Text) Assessment: ACUTE ASTHMA URI PEDAL EDEMA HX OF CABG S/P RENAL TRANSPLANT HTN DM Plan: WILL CONTINUE CURRENT RX CARDIOLOGY EVAL
--- NOTE | 2017-11-09 11:35 | RAD ---
PROCEDURE: CHEST RADIOGRAPH, 1 VIEW HISTORY: CHF COMPARISON: 11/05/2017. FINDINGS: LUNGS: There are low lung volumes. There is bibasilar airspace disease. PLEURA: No pneumothorax. Small pleural effusions the CARDIOVASCULAR: The cardiomediastinal silhouette is stable. Status post CABG. OSSEOUS STRUCTURES: No significant abnormalities. VISUALIZED UPPER ABDOMEN: Normal. OTHER FINDINGS: None. IMPRESSION: Bilateral pleural effusions and bibasilar atelectasis. Low lung volumes may be related to poor inspiratory effort.
[2017-11-09] MEDS: Pantoprazole 40 mg EC Tab PO SCH (11:38)
[2017-11-09] MEDS: cefTRIAXone 1 gm/NS 100ML IVPB SCH (16:50)
--- NOTE | 2017-11-09 18:33 | CP.PCM.CON ---
History of Present Illness - History of Present Illness History of Present Illness: i WAS ASKED TO SEE THE PATIENT BY DR FLOOD DUE TO LEG EDEMA AND TO EVALUATE FOR POSSIBLE CHF. HE WAS RECENTLY ADMITTED TO FOR ASTHMA WITH AN INFECTION AND RECEIVED IV ANTIBIOTICS. HE IS NOW IN TCU AND IS STILL RECEIVING ANTIBIOTICS. HE ALSO HAS A HISTORY OF CAD WITH AN NV AND CABGS 6 YEARS AGO, HYPERTENSION, DIABETES MELLITUS, A RENAL TRANSPLANT AND AN OLD CVA. HE DENIES CHEST PAIN OR A KNOWN HISTORY OF CHF. HE STATES HIS BREATHING IS MUCH IMPROVED NOW COMPARED TO WHEN HE WAS ADMITTED TO THE HOSPITAL. THE PATIENT STATES THAT HE HAD BILATERAL VARICOSE VEIN STRIPPING IN ADDITIONAL TO CABGS VEIN HARVESTING AND THAT HIS HIS LEGS ARE OFTEN SWOLLEN. 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 Past Patient History - Infectious Disease Hx of Infectious Diseases: None - Past Medical History & Family History Past Medical History?: Yes - Past Social History Smoking Status: Never Smoked - CARDIAC Hx Cardiac Disorders: Yes Hx Congestive Heart Failure: Yes Hx Hypercholesterolemia: Yes Hx Hypertension: Yes - PULMONARY Hx Asthma: Yes Hx Pneumonia: Yes - NEUROLOGICAL HX Cerebrovascular Accident: Yes - HEENT Hx Blind: Yes (left eye) Hx Cataracts: Yes - RENAL Hx Chronic Kidney Disease: Yes Other/Comment: history of kidney transplant. has left arm av shunt - ENDOCRINE/METABOLIC Hx Diabetes Mellitus Type 2: Yes - HEMATOLOGICAL/ONCOLOGICAL Hx AIDS: No Hx Anemia: Yes Hx Blood Transfusions: Yes Hx Blood Transfusion Reaction: No Hx Human Immunodeficiency Virus (HIV): No - INTEGUMENTARY Hx Dermatological Problems: No - MUSCULOSKELETAL/RHEUMATOLOGICAL Hx Falls: Yes Hx Fractures: Yes - GASTROINTESTINAL Hx Diarrhea: Yes - GENITOURINARY/GYNECOLOGICAL Hx Genitourinary Disorders: No - PSYCHIATRIC Hx Anxiety: Yes Hx Substance Use: No - SURGICAL HISTORY Hx Carotid Endarterectomy: Yes Hx Cholecystectomy: Yes Hx Coronary Artery Bypass Graft: Yes Hx Coronary Stent: Yes - ANESTHESIA Hx Anesthesia: Yes Hx Anesthesia Reactions: No Hx Malignant Hyperthermia: No Meds Allergies/Adverse Reactions: Allergies Allergy/AdvReac Type Severity Reaction Status Date / Time No Known Allergies Allergy Verified 11/07/17 15:42 - Medications Medications: Current Medications Acetaminophen (Tylenol 325mg Tab) 650 mg PO Q6 PRN PRN Reason: temp 101 Acetylcysteine (Acetylcysteine 20%) 2 ml INH RBID [facility] Last Admin: 11/09/17 07:13 Dose: 2 ml Albuterol/Ipratropium (Duoneb 3 Mg/0.5 Mg (3 Ml) Ud) 3 ml INH RQ4 [facility] Last Admin: 11/09/17 15:47 Dose: 3 ml Alprazolam (Xanax) 0.5 mg PO HS PRN PRN Reason: Anxiety Aspirin (Ecotrin) 81 mg PO DAILY [facility] Last Admin: 11/09/17 08:50 Dose: 81 mg Atorvastatin Calcium (Lipitor) 20 mg PO HS [facility] Last Admin: 11/08/17 21:01 Dose: 20 mg Cholecalciferol (Vitamin D) 2,000 intlu PO DAILY [facility] Last Admin: 11/09/17 08:49 Dose: 2,000 intlu Diltiazem HCl (Cardizem Cd) 240 mg PO DAILY [facility] Last Admin: 11/09/17 08:50 Dose: 240 mg Furosemide (Lasix) 40 mg PO DAILY [facility] Last Admin: 11/09/17 08:50 Dose: 40 mg Home Med (Mycophenolate Sodium [Mycophenolic Acid]) 540 mg PO Q12 [facility] Last Admin: 11/09/17 08:49 Dose: 540 mg Home Med (Patient's Own Medication) 3 unit PO DAILY@0700 [facility] Last Admin: 11/09/17 06:49 Dose: 3 unit Hydrocortisone (Anusol-Hc) 1 applic [place] BID [facility] Last Admin: 11/09/17 16:45 Dose: 1 applic Ceftriaxone Sodium 1 gm/ (Sodium Chloride) 100 mls @ 100 mls/hr IVPB DAILY@ 1700 [facility] Last Admin: 11/09/17 16:50 Dose: 100 mls/hr Azithromycin 500 mg/ Sodium (Chloride) 250 mls @ 250 mls/hr IVPB DAILY@2100 [facility] Last Admin: 11/08/17 21:40 Dose: 250 mls/hr Insulin Human Lispro (Humalog) 0 units SC ACHS [facility] PRN Reason: Protocol Last Admin: 11/09/17 16:45 Dose: 3 u Insulin Lispro Protam/Lispro Human (Humalog Mix 75/25) 20 units SC DIN [facility] Last Admin: 11/09/17 16:46 Dose: 20 units Insulin Lispro Protam/Lispro Human (Humalog Mix 75/25) 30 units SC BRK [facility] Last Admin: 11/09/17 08:51 Dose: 30 units Methylprednisolone (Solu-Medrol) 40 mg IVP Q8H [facility] Last Admin: 11/09/17 12:46 Dose: 40 mg Metoprolol Tartrate (Lopressor) 100 mg PO Q12 [facility] Last Admin: 11/09/17 08:50 Dose: 100 mg Multivitamins/Minerals (Therapeutic-M Tab) 1 tab PO DAILY [facility] Last Admin: 11/09/17 08:50 Dose: 1 tab Pantoprazole Sodium (Protonix Ec Tab) 40 mg PO ACL [facility] Last Admin: 11/09/17 11:38 Dose: 40 mg Prednisone (Prednisone Tab) 5 mg PO DAILY [facility] Last Admin: 11/09/17 08:50 Dose: 5 mg Pregabalin (Lyrica) 100 mg PO HS [facility] Last Admin: 11/08/17 21:01 Dose: 100 mg Promethazine HCl/Codeine (Phenergan/Codeine Oral Syrup) 10 ml PO Q4 [facility] Last Admin: 11/09/17 13:52 Dose: Not Given Tramadol HCl (Ultram) 50 mg PO DAILY PRN PRN Reason: Pain, severe (8-10) Trimethoprim/Sulfamethoxazole (Bactrim Ds Tab) 1 tab PO MWF [facility] PRN Reason: Protocol Last Admin: 11/09/17 08:58 Dose: 1 tab Physical Exam - Respiratory Exam Respiratory Exam: Rhonchi - Cardiovascular Exam Cardiovascular Exam: REGULAR RHYTHM, +S1, +S2 - Extremities Exam Additional comments: BILATERAL ~ 2+ PRETIBIAL EDEMA RLE VEIN HARVESTING SCAR SEEN - Additional Findings Additional findings: EKG NSR, LVE CXR SMALL BILATERAL PLEURAL EFFUSIONS NO PULMONARY CONGESTION Results - Vital Signs Recent Vital Signs: Last Vital Signs Temp 98.2 F 11/09/17 16:20 Pulse 69 11/09/17 16:20 Resp 20 11/09/17 16:20 BP 131/73 11/09/17 16:20 Pulse Ox 91 L 11/09/17 16:20 - Labs Result Diagrams: 11/10/17 06:20 11/10/17 06:20 Labs: Laboratory Results - last 24 hr 11/08/17 11/09/17 11/09/17 20:37 05:52 06:00 WBC 9.8 RBC 5.28 Hgb 14.8 Hct 45.5 MCV 86.2 MCH 28.1 MCHC 32.6 L RDW 15.9 H Plt Count 199 PT INR Sodium Potassium Chloride Carbon Dioxide Anion Gap BUN Creatinine Est GFR ( Amer) Est GFR (Non-Af Amer) POC Glucose (mg/dL) 305 H 342 H Random Glucose Calcium 11/09/17 11/09/17 11/09/17 06:00 06:00 11:20 WBC RBC Hgb Hct MCV MCH MCHC RDW Plt Count PT 30.3 H INR 2.7 H Sodium 134 Potassium 4.9 Chloride 96 L Carbon Dioxide 27 Anion Gap 16 BUN 40 H Creatinine 1.2 Est GFR ( Amer) > 60 Est GFR (Non-Af Amer) > 60 POC Glucose (mg/dL) 437 H* Random Glucose 334 H Calcium 9.7 11/09/17 15:51 WBC RBC Hgb Hct MCV MCH MCHC RDW Plt Count PT INR Sodium Potassium Chloride Carbon Dioxide Anion Gap BUN Creatinine Est GFR ( Amer) Est GFR (Non-Af Amer) POC Glucose (mg/dL) 245 H Random Glucose Calcium Assessment & Plan - Assessment and Plan (Free Text) Assessment: ASTHMA CAD WITH OLD NV AND CABGS HYPERTENSION DM RENAL TRANSPLANT OLD CVA THE LEG EDEMA IS CHRONIC AND PROBABLY FROM COMBINED VARICOSE VEIN STRIPPING AND VEIN HARVESTING FOR CABGS-THE CXR DOES NOT SHOW PULMONARY CONGESTION Plan: CONTINUE O2, ASPIRIN, ATORVASTATIN, DILTIAZEM, FUROSEMIDE, METOPROLOL, ANTIBIOTICS AND WARFARIN PER INR AN ECHOCARDIOGRAM WAS ORDERED TO ASSESS THE LV FUNCTION PATIENT DISCUSSED WITH DR FLOOD
[2017-11-09] MEDS: AZITHROMYCIN 500 MG/NS 250 ML IVPB SCH (20:22)
[2017-11-10] MEDS: Promethazine/Cod 6.25mg-10mg/5ml Syr UD PO SCH ×6 (02:22→21:49)
[2017-11-10] MEDS: Albuterol-Ipratrop 3 mg / 0.5 (3 ml) UD INH SCH ×6 (03:57→23:10)
[2017-11-10] MEDS: MethylPREDNISolone 40 mg Vial IVP SCH (05:49)
[2017-11-10 07:08] LABS: HEMOGLOBIN 14.8 g/dL (12.0-18.0); MEAN CELL VOLUME 86.7 fl (80.0-94.0); MEAN CORPUSCULAR HEMOGLOBIN 28.2 pg (27.0-31.0); MEAN CORPUSCULAR HGB CONC 32.6 g/dL (33.0-37.0); RBC 5.24 Mil/uL (4.40-5.90); RED CELL DISTRIBUTION WIDTH 15.6 % (11.5-14.5)
[2017-11-10 07:11] LABS: INR 2.6 (0.9-1.2); PROTHROMBIN TIME 29.6 Seconds (9.8-13.1)
[2017-11-10] MEDS: Acetylcysteine 20% Inhal Soln (4ml) INH SCH ×2 (07:25→19:38)
[2017-11-10 07:52] LABS: BLOOD UREA NITROGEN 41 mg/dl (9-20); CALCIUM 9.8 mg/dL (8.4-10.2); GFR AFRICAN-AMERICAN > 60; GFR NON-AFRICAN AMERICAN > 60
[2017-11-10] MEDS: TACROLIMUS PO SCH (08:01)
--- NOTE | 2017-11-10 08:17 | CP.PCM.PN ---
Subjective - Date & Time of Evaluation Date of Evaluation: 11/10/17 Time of Evaluation: 08:18 - Subjective Subjective: SOB IMPROVING STILL COUGHING NO CHEST PAIN EXERCISE TOLERANCE IMPROVING Objective - Vital Signs/Intake and Output Vital Signs (last 24 hours): Temp Pulse Resp BP Pulse Ox 97.5 F L 67 20 126/67 95 11/09/17 20:23 11/09/17 21:47 11/09/17 20:23 11/09/17 21:47 11/09/17 20:23 - Medications Medications: Current Medications Acetaminophen (Tylenol 325mg Tab) 650 mg PO Q6 PRN PRN Reason: temp 101 Acetylcysteine (Acetylcysteine 20%) 2 ml INH RBID [facility] Last Admin: 11/10/17 07:25 Dose: 2 ml Albuterol/Ipratropium (Duoneb 3 Mg/0.5 Mg (3 Ml) Ud) 3 ml INH RQ4 [facility] Last Admin: 11/10/17 07:25 Dose: 3 ml Alprazolam (Xanax) 0.5 mg PO HS PRN PRN Reason: Anxiety Aspirin (Ecotrin) 81 mg PO DAILY [facility] Last Admin: 11/09/17 08:50 Dose: 81 mg Atorvastatin Calcium (Lipitor) 20 mg PO HS [facility] Last Admin: 11/09/17 21:48 Dose: 20 mg Cholecalciferol (Vitamin D) 2,000 intlu PO DAILY [facility] Last Admin: 11/09/17 08:49 Dose: 2,000 intlu Diltiazem HCl (Cardizem Cd) 240 mg PO DAILY [facility] Last Admin: 11/09/17 08:50 Dose: 240 mg Furosemide (Lasix) 40 mg PO DAILY [facility] Last Admin: 11/09/17 08:50 Dose: 40 mg Home Med (Mycophenolate Sodium [Mycophenolic Acid]) 540 mg PO Q12 [facility] Last Admin: 11/09/17 20:22 Dose: 540 mg Home Med (Patient's Own Medication) 3 unit PO DAILY@0700 [facility] Last Admin: 11/10/17 08:01 Dose: 3 unit Hydrocortisone (Anusol-Hc) 1 applic ND BID [facility] Last Admin: 11/09/17 16:45 Dose: 1 applic Insulin Human Lispro (Humalog) 0 units SC ACHS [facility] PRN Reason: Protocol Last Admin: 11/09/17 21:54 Dose: Not Given Insulin Lispro Protam/Lispro Human (Humalog Mix 75/25) 20 units SC DIN [facility] Last Admin: 11/09/17 16:46 Dose: 20 units Insulin Lispro Protam/Lispro Human (Humalog Mix 75/25) 30 units SC BRK [facility] Last Admin: 11/09/17 08:51 Dose: 30 units Metoprolol Tartrate (Lopressor) 100 mg PO Q12 [facility] Last Admin: 11/09/17 21:47 Dose: 100 mg Multivitamins/Minerals (Therapeutic-M Tab) 1 tab PO DAILY [facility] Last Admin: 11/09/17 08:50 Dose: 1 tab Pantoprazole Sodium (Protonix Ec Tab) 40 mg PO ACL [facility] Last Admin: 11/09/17 11:38 Dose: 40 mg Prednisone (Prednisone Tab) 5 mg PO DAILY [facility] Last Admin: 11/09/17 08:50 Dose: 5 mg Pregabalin (Lyrica) 100 mg PO HS [facility] Last Admin: 11/09/17 21:53 Dose: 100 mg Promethazine HCl/Codeine (Phenergan/Codeine Oral Syrup) 10 ml PO Q4 [facility] Last Admin: 11/10/17 05:56 Dose: Not Given Tramadol HCl (Ultram) 50 mg PO DAILY PRN PRN Reason: Pain, severe (8-10) Trimethoprim/Sulfamethoxazole (Bactrim Ds Tab) 1 tab PO MWF [facility] PRN Reason: Protocol Last Admin: 11/09/17 08:58 Dose: 1 tab Warfarin Sodium (Coumadin) 2 mg PO QD5 [facility] PRN Reason: Protocol Stop: 11/10/17 17:01 - Labs Labs: 11/10/17 06:20 11/10/17 06:20 PT 29.6 Seconds (9.8-13.1) H 11/10/17 06:20 INR 2.6 (0.9-1.2) H 11/10/17 06:20 - Constitutional Appears: No Acute Distress - Head Exam Head Exam: ATRAUMATIC, NORMAL INSPECTION, NORMOCEPHALIC - Eye Exam Eye Exam: EOMI, Normal appearance, PERRL Pupil Exam: NORMAL ACCOMODATION, PERRL - ENT Exam ENT Exam: Mucous Membranes Moist, Normal Exam - Neck Exam Neck Exam: Full ROM, Normal Inspection. absent: Lymphadenopathy - Respiratory Exam Respiratory Exam: Decreased Breath Sounds, Rales, Wheezes, NORMAL BREATHING PATTERN - Cardiovascular Exam Cardiovascular Exam: REGULAR RHYTHM, +S1, +S2. absent: Murmur - GI/Abdominal Exam GI & Abdominal Exam: Soft, Normal Bowel Sounds. absent: Tenderness - Rectal Exam Rectal Exam: NORMAL INSPECTION - Extremities Exam Extremities Exam: Full ROM, Normal Capillary Refill, Normal Inspection, Pedal Edema. absent: Joint Swelling - Back Exam Back Exam: NORMAL INSPECTION - Neurological Exam Neurological Exam: Alert, Awake, CN II-XII Intact, Normal Gait, Oriented x3 - Psychiatric Exam Psychiatric exam: Normal Affect, Normal Mood - Skin Skin Exam: Dry, Intact, Normal Color, Warm Assessment and Plan - Assessment and Plan (Free Text) Assessment: ACUTE ASTHMA ASHD S/P CABG S/P RENAL TRANSPLANT PLEURAL EFFUSIONS URI DM HTN Plan: CARDIOLOGY CONSULT APPRECIATED WILL D/C IV ANTIBIOTICS AND STEROIDS INCREASE ACTIVITY
[2017-11-10] MEDS: Insulin Lispro (humaLOG) 100 Units/ml Inj SC SCH ×4 (08:18→22:48)
[2017-11-10] MEDS: diltiaZEM 240 mg/24 Hours CD Cap PO SCH (08:42)
[2017-11-10] MEDS: Hydrocortisone 2.5% (Rectal) CREAM PR SCH ×2 (08:42→17:00)
[2017-11-10] MEDS: Insulin Lispro Mix 75/25 100 units/ml (HumaLog) 10ml SC SCH ×2 (08:43→17:02)
[2017-11-10] MEDS: Multivitamin With Minerals Tab PO SCH (08:44)
[2017-11-10] MEDS: MYCOPHENOLATE SODIUM 180 MG PO SCH ×2 (08:44→21:46)
[2017-11-10] MEDS: Cholecalciferol 1,000 INTLU TAB PO SCH (08:44)
--- NOTE | 2017-11-10 10:58 | CP.PCM.PN ---
Subjective - Date & Time of Evaluation Date of Evaluation: 11/10/17 Time of Evaluation: 08:30 - Subjective Subjective: NO CHEST PAIN BREATHING BETTER TODAY Objective - Vital Signs/Intake and Output Vital Signs (last 24 hours): Temp Pulse Resp BP Pulse Ox 97.1 F L 78 20 153/90 H 92 L 11/10/17 08:18 11/10/17 09:06 11/10/17 08:18 11/10/17 08:43 11/10/17 09:06 - Medications Medications: Current Medications Acetaminophen (Tylenol 325mg Tab) 650 mg PO Q6 PRN PRN Reason: temp 101 Acetylcysteine (Acetylcysteine 20%) 2 ml INH RBID [facility] Last Admin: 11/10/17 07:25 Dose: 2 ml Albuterol/Ipratropium (Duoneb 3 Mg/0.5 Mg (3 Ml) Ud) 3 ml INH RQ4 [facility] Last Admin: 11/10/17 07:25 Dose: 3 ml Alprazolam (Xanax) 0.5 mg PO HS PRN PRN Reason: Anxiety Aspirin (Ecotrin) 81 mg PO DAILY [facility] Last Admin: 11/10/17 08:42 Dose: 81 mg Atorvastatin Calcium (Lipitor) 20 mg PO HS [facility] Last Admin: 11/09/17 21:48 Dose: 20 mg Azithromycin (Zithromax) 250 mg PO DAILY [facility] PRN Reason: Protocol Stop: 11/13/17 09:01 Last Admin: 11/10/17 10:23 Dose: 250 mg Cholecalciferol (Vitamin D) 2,000 intlu PO DAILY [facility] Last Admin: 11/10/17 08:44 Dose: 2,000 intlu Diltiazem HCl (Cardizem Cd) 240 mg PO DAILY [facility] Last Admin: 11/10/17 08:42 Dose: 240 mg Furosemide (Lasix) 40 mg PO DAILY [facility] Last Admin: 11/10/17 08:43 Dose: 40 mg Home Med (Mycophenolate Sodium [Mycophenolic Acid]) 540 mg PO Q12 [facility] Last Admin: 11/10/17 08:44 Dose: 540 mg Home Med (Patient's Own Medication) 3 unit PO DAILY@0700 [facility] Last Admin: 11/10/17 08:01 Dose: 3 unit Hydrocortisone (Anusol-Hc) 1 applic NE BID [facility] Last Admin: 11/10/17 08:42 Dose: 1 applic Insulin Human Lispro (Humalog) 0 units SC ACHS [facility] PRN Reason: Protocol Last Admin: 11/10/17 08:18 Dose: 4 u Insulin Lispro Protam/Lispro Human (Humalog Mix 75/25) 20 units SC DIN [facility] Last Admin: 11/09/17 16:46 Dose: 20 units Insulin Lispro Protam/Lispro Human (Humalog Mix 75/25) 30 units SC BRK [facility] Last Admin: 11/10/17 08:43 Dose: 30 units Metoprolol Tartrate (Lopressor) 100 mg PO Q12 [facility] Last Admin: 11/10/17 08:43 Dose: 100 mg Multivitamins/Minerals (Therapeutic-M Tab) 1 tab PO DAILY [facility] Last Admin: 11/10/17 08:44 Dose: 1 tab Pantoprazole Sodium (Protonix Ec Tab) 40 mg PO ACL [facility] Last Admin: 11/09/17 11:38 Dose: 40 mg Prednisone (Prednisone Tab) 5 mg PO DAILY [facility] Last Admin: 11/10/17 08:44 Dose: 5 mg Pregabalin (Lyrica) 100 mg PO HS [facility] Last Admin: 11/09/17 21:53 Dose: 100 mg Promethazine HCl/Codeine (Phenergan/Codeine Oral Syrup) 10 ml PO Q4 [facility] Last Admin: 11/10/17 09:12 Dose: 10 ml Tramadol HCl (Ultram) 50 mg PO DAILY PRN PRN Reason: Pain, severe (8-10) Trimethoprim/Sulfamethoxazole (Bactrim Ds Tab) 1 tab PO MWF [facility] PRN Reason: Protocol Last Admin: 11/09/17 08:58 Dose: 1 tab Warfarin Sodium (Coumadin) 2 mg PO QD5 [facility] PRN Reason: Protocol Stop: 11/10/17 17:01 - Labs Labs: 11/10/17 06:20 11/10/17 06:20 PT 29.6 Seconds (9.8-13.1) H 11/10/17 06:20 INR 2.6 (0.9-1.2) H 11/10/17 06:20 - Respiratory Exam Respiratory Exam: Rhonchi - Cardiovascular Exam Cardiovascular Exam: REGULAR RHYTHM, +S1, +S2 - Extremities Exam Extremities Exam: Pedal Edema Assessment and Plan - Assessment and Plan (Free Text) Assessment: ASTHMA CAD WITH CABGS HYPERTENSION HYPERLIPIDEMIA DM Plan: THE PATIENT WILL HAVE AN ECHOCARDIOGRAM TODAY CONTINUE ASPIRIN, METOPROLOL, CARDIZEM, ATORVASTATIN, FUROSEMIDE
[2017-11-10] MEDS: Pantoprazole 40 mg EC Tab PO SCH (11:15)
[2017-11-11] MEDS: Promethazine/Cod 6.25mg-10mg/5ml Syr UD PO SCH ×7 (01:22→22:00)
[2017-11-11] MEDS: Albuterol-Ipratrop 3 mg / 0.5 (3 ml) UD INH SCH ×5 (02:31→19:54)
[2017-11-11 06:48] LABS: BLOOD UREA NITROGEN 43 mg/dl (9-20); CALCIUM 9.9 mg/dL (8.4-10.2); GFR AFRICAN-AMERICAN > 60; GFR NON-AFRICAN AMERICAN > 60
[2017-11-11 06:54] LABS: INR 2.5 (0.9-1.2); PROTHROMBIN TIME 27.7 Seconds (9.8-13.1)
[2017-11-11] MEDS ORDERED: TACROLIMUS 2 MG PO SCH (07:00)
[2017-11-11] MEDS: ASTAGRAF 1 MG PO SCH (07:05)
[2017-11-11] MEDS: Acetylcysteine 20% Inhal Soln (4ml) INH SCH ×2 (07:29→19:57)
[2017-11-11] MEDS: Insulin Lispro (humaLOG) 100 Units/ml Inj SC SCH ×4 (07:54→22:00)
[2017-11-11] MEDS: Hydrocortisone 2.5% (Rectal) CREAM PR SCH ×2 (08:16→16:54)
[2017-11-11] MEDS: Tmp-Smz 800 mg-160 mg DS Tab PO SCH (08:16)
[2017-11-11] MEDS: diltiaZEM 240 mg/24 Hours CD Cap PO SCH (08:16)
[2017-11-11] MEDS: Insulin Lispro Mix 75/25 100 units/ml (HumaLog) 10ml SC SCH ×2 (08:17→16:55)
[2017-11-11] MEDS: Cholecalciferol 1,000 INTLU TAB PO SCH (08:18)
[2017-11-11] MEDS: Multivitamin With Minerals Tab PO SCH (08:18)
[2017-11-11] MEDS: MYCOPHENOLATE SODIUM 180 MG PO SCH ×2 (08:18→21:00)
--- NOTE | 2017-11-11 11:36 | CP.PCM.PN ---
Subjective - Date & Time of Evaluation Date of Evaluation: 11/11/17 Time of Evaluation: 11:00 - Subjective Subjective: BREATHING BETTER NO CHEST PAIN Objective - Vital Signs/Intake and Output Vital Signs (last 24 hours): Temp Pulse Resp BP Pulse Ox 97.9 F 66 18 148/72 97 11/11/17 07:58 11/11/17 08:18 11/11/17 07:58 11/11/17 08:18 11/11/17 07:58 - Medications Medications: Current Medications Acetaminophen (Tylenol 325mg Tab) 650 mg PO Q6 PRN PRN Reason: temp 101 Acetylcysteine (Acetylcysteine 20%) 2 ml INH RBID [facility] Last Admin: 11/11/17 07:29 Dose: 2 ml Albuterol/Ipratropium (Duoneb 3 Mg/0.5 Mg (3 Ml) Ud) 3 ml INH RQ4 [facility] Last Admin: 11/11/17 07:29 Dose: 3 ml Alprazolam (Xanax) 0.5 mg PO HS PRN PRN Reason: Anxiety Aspirin (Ecotrin) 81 mg PO DAILY [facility] Last Admin: 11/11/17 08:17 Dose: 81 mg Atorvastatin Calcium (Lipitor) 20 mg PO HS [facility] Last Admin: 11/10/17 21:44 Dose: 20 mg Azithromycin (Zithromax) 250 mg PO DAILY [facility] PRN Reason: Protocol Stop: 11/13/17 09:01 Last Admin: 11/11/17 08:19 Dose: 250 mg Cholecalciferol (Vitamin D) 2,000 intlu PO DAILY [facility] Last Admin: 11/11/17 08:18 Dose: 2,000 intlu Diltiazem HCl (Cardizem Cd) 240 mg PO DAILY [facility] Last Admin: 11/11/17 08:16 Dose: 240 mg Furosemide (Lasix) 40 mg PO DAILY [facility] Last Admin: 11/11/17 08:17 Dose: 40 mg Home Med (Mycophenolate Sodium [Mycophenolic Acid]) 540 mg PO Q12 [facility] Last Admin: 11/11/17 08:18 Dose: 540 mg Home Med (Astagraf Xl) 2 mg PO DAILY@0700 [facility] Last Admin: 11/11/17 07:05 Dose: 2 mg Hydrocortisone (Anusol-Hc) 1 applic GA BID [facility] Last Admin: 11/11/17 08:16 Dose: 1 applic Insulin Human Lispro (Humalog) 0 units SC ACHS [facility] PRN Reason: Protocol Last Admin: 11/11/17 07:54 Dose: 3 u Insulin Lispro Protam/Lispro Human (Humalog Mix 75/25) 20 units SC DIN [facility] Last Admin: 11/10/17 17:02 Dose: 20 units Insulin Lispro Protam/Lispro Human (Humalog Mix 75/25) 30 units SC BRK [facility] Last Admin: 11/11/17 08:17 Dose: 30 units Metoprolol Tartrate (Lopressor) 100 mg PO Q12 [facility] Last Admin: 11/11/17 08:18 Dose: 100 mg Multivitamins/Minerals (Therapeutic-M Tab) 1 tab PO DAILY [facility] Last Admin: 11/11/17 08:18 Dose: 1 tab Pantoprazole Sodium (Protonix Ec Tab) 40 mg PO ACL [facility] Last Admin: 11/10/17 11:15 Dose: 40 mg Prednisone (Prednisone Tab) 5 mg PO DAILY [facility] Last Admin: 11/11/17 08:18 Dose: 5 mg Pregabalin (Lyrica) 100 mg PO HS [facility] Last Admin: 11/10/17 21:44 Dose: 100 mg Promethazine HCl/Codeine (Phenergan/Codeine Oral Syrup) 10 ml PO Q4 [facility] Last Admin: 11/11/17 08:22 Dose: 10 ml Tramadol HCl (Ultram) 50 mg PO DAILY PRN PRN Reason: Pain, severe (8-10) Trimethoprim/Sulfamethoxazole (Bactrim Ds Tab) 1 tab PO MWF [facility] PRN Reason: Protocol Last Admin: 11/11/17 08:16 Dose: 1 tab - Labs Labs: 11/10/17 06:20 11/11/17 06:05 PT 27.7 Seconds (9.8-13.1) H 11/11/17 06:05 INR 2.5 (0.9-1.2) H 11/11/17 06:05 - Respiratory Exam Respiratory Exam: Rhonchi, Wheezes - Cardiovascular Exam Cardiovascular Exam: REGULAR RHYTHM, +S1, +S2 - Extremities Exam Additional comments: MILD LE LEG EDEMA - Additional Findings Additional findings: ECHO WITH GOOD LV FUNCTION IN MY OPINION, MILD AR Assessment and Plan - Assessment and Plan (Free Text) Assessment: ASTHMA CAD WITH CABGS, GOOD LV SYSTOLIC CONTRACTION HYPERTENSION HYPERLIPIDEMIA Plan: CONTINUE ASPIRIN, CARDIZEM, METOPROLOL, ATORVASTATIN AND FUROSEMIDE
[2017-11-11] MEDS: Pantoprazole 40 mg EC Tab PO SCH (11:55)
--- NOTE | 2017-11-11 14:04 | CP.PCM.PN ---
Subjective - Date & Time of Evaluation Date of Evaluation: 11/11/17 Time of Evaluation: 14:04 - Subjective Subjective: cough less sob improving still has pedal edema Objective - Vital Signs/Intake and Output Vital Signs (last 24 hours): Temp Pulse Resp BP Pulse Ox 97.9 F 67 18 148/72 95 11/11/17 07:58 11/11/17 11:11 11/11/17 07:58 11/11/17 08:18 11/11/17 11:11 - Medications Medications: Current Medications Acetaminophen (Tylenol 325mg Tab) 650 mg PO Q6 PRN PRN Reason: temp 101 Acetylcysteine (Acetylcysteine 20%) 2 ml INH RBID [facility] Last Admin: 11/11/17 07:29 Dose: 2 ml Albuterol/Ipratropium (Duoneb 3 Mg/0.5 Mg (3 Ml) Ud) 3 ml INH RQ4 [facility] Last Admin: 11/11/17 11:36 Dose: Not Given Alprazolam (Xanax) 0.5 mg PO HS PRN PRN Reason: Anxiety Aspirin (Ecotrin) 81 mg PO DAILY [facility] Last Admin: 11/11/17 08:17 Dose: 81 mg Atorvastatin Calcium (Lipitor) 20 mg PO HS [facility] Last Admin: 11/10/17 21:44 Dose: 20 mg Azithromycin (Zithromax) 250 mg PO DAILY [facility] PRN Reason: Protocol Stop: 11/13/17 09:01 Last Admin: 11/11/17 08:19 Dose: 250 mg Cholecalciferol (Vitamin D) 2,000 intlu PO DAILY [facility] Last Admin: 11/11/17 08:18 Dose: 2,000 intlu Diltiazem HCl (Cardizem Cd) 240 mg PO DAILY [facility] Last Admin: 11/11/17 08:16 Dose: 240 mg Furosemide (Lasix) 40 mg PO DAILY [facility] Last Admin: 11/11/17 08:17 Dose: 40 mg Home Med (Mycophenolate Sodium [Mycophenolic Acid]) 540 mg PO Q12 [facility] Last Admin: 11/11/17 08:18 Dose: 540 mg Home Med (Astagraf Xl) 2 mg PO DAILY@0700 [facility] Last Admin: 11/11/17 07:05 Dose: 2 mg Hydrocortisone (Anusol-Hc) 1 applic [place] BID [facility] Last Admin: 11/11/17 08:16 Dose: 1 applic Insulin Human Lispro (Humalog) 0 units SC ACHS [facility] PRN Reason: Protocol Last Admin: 11/11/17 11:51 Dose: 3 u Insulin Lispro Protam/Lispro Human (Humalog Mix 75/25) 20 units SC DIN [facility] Last Admin: 11/10/17 17:02 Dose: 20 units Insulin Lispro Protam/Lispro Human (Humalog Mix 75/25) 30 units SC BRK [facility] Last Admin: 11/11/17 08:17 Dose: 30 units Metoprolol Tartrate (Lopressor) 100 mg PO Q12 [facility] Last Admin: 11/11/17 08:18 Dose: 100 mg Multivitamins/Minerals (Therapeutic-M Tab) 1 tab PO DAILY [facility] Last Admin: 11/11/17 08:18 Dose: 1 tab Pantoprazole Sodium (Protonix Ec Tab) 40 mg PO ACL [facility] Last Admin: 11/11/17 11:55 Dose: 40 mg Prednisone (Prednisone Tab) 5 mg PO DAILY [facility] Last Admin: 11/11/17 08:18 Dose: 5 mg Pregabalin (Lyrica) 100 mg PO HS [facility] Last Admin: 11/10/17 21:44 Dose: 100 mg Promethazine HCl/Codeine (Phenergan/Codeine Oral Syrup) 10 ml PO Q4 [facility] Last Admin: 11/11/17 12:31 Dose: Not Given Tramadol HCl (Ultram) 50 mg PO DAILY PRN PRN Reason: Pain, severe (8-10) Trimethoprim/Sulfamethoxazole (Bactrim Ds Tab) 1 tab PO MWF [facility] PRN Reason: Protocol Last Admin: 11/11/17 08:16 Dose: 1 tab - Labs Labs: 11/10/17 06:20 11/11/17 06:05 PT 27.7 Seconds (9.8-13.1) H 11/11/17 06:05 INR 2.5 (0.9-1.2) H 11/11/17 06:05 - Constitutional Appears: No Acute Distress - Head Exam Head Exam: ATRAUMATIC, NORMAL INSPECTION, NORMOCEPHALIC - Eye Exam Eye Exam: EOMI, Normal appearance, PERRL Pupil Exam: NORMAL ACCOMODATION, PERRL - ENT Exam ENT Exam: Mucous Membranes Moist, Normal Exam - Neck Exam Neck Exam: Full ROM, Normal Inspection. absent: Lymphadenopathy - Respiratory Exam Respiratory Exam: Decreased Breath Sounds, Prolonged Expiratory Phase, Rales, NORMAL BREATHING PATTERN - Cardiovascular Exam Cardiovascular Exam: REGULAR RHYTHM, +S1, +S2. absent: Murmur - GI/Abdominal Exam GI & Abdominal Exam: Soft, Normal Bowel Sounds. absent: Tenderness - Rectal Exam Rectal Exam: NORMAL INSPECTION - Extremities Exam Extremities Exam: Full ROM, Normal Capillary Refill, Normal Inspection, Pedal Edema. absent: Joint Swelling - Back Exam Back Exam: NORMAL INSPECTION - Neurological Exam Neurological Exam: Alert, Awake, CN II-XII Intact, Normal Gait, Oriented x3 - Psychiatric Exam Psychiatric exam: Normal Affect, Normal Mood - Skin Skin Exam: Dry, Intact, Normal Color, Warm Assessment and Plan - Assessment and Plan (Free Text) Assessment: acute asthma coronary artery dz dm Plan: continue current rx
[2017-11-12] MEDS: Albuterol-Ipratrop 3 mg / 0.5 (3 ml) UD INH SCH ×7 (00:01→23:28)
[2017-11-12] MEDS: Promethazine/Cod 6.25mg-10mg/5ml Syr UD PO SCH ×4 (01:30→10:36)
[2017-11-12] MEDS: Insulin Lispro (humaLOG) 100 Units/ml Inj SC SCH ×3 (06:57→16:43)
[2017-11-12] MEDS: ASTAGRAF 1 MG PO SCH (06:58)
[2017-11-12 07:52] LABS: INR 1.9 (0.9-1.2); PROTHROMBIN TIME 21.4 Seconds (9.8-13.1)
[2017-11-12] MEDS: Acetylcysteine 20% Inhal Soln (4ml) INH SCH ×2 (07:57→19:12)
[2017-11-12] MEDS: MYCOPHENOLATE SODIUM 180 MG PO SCH ×3 (08:41→21:27)
[2017-11-12] MEDS: Cholecalciferol 1,000 INTLU TAB PO SCH (08:42)
[2017-11-12] MEDS: diltiaZEM 240 mg/24 Hours CD Cap PO SCH (08:43)
[2017-11-12] MEDS: Multivitamin With Minerals Tab PO SCH (08:43)
[2017-11-12] MEDS: Insulin Lispro Mix 75/25 100 units/ml (HumaLog) 10ml SC SCH ×2 (08:44→16:42)
[2017-11-12] MEDS: Hydrocortisone 2.5% (Rectal) CREAM PR SCH ×2 (08:46→16:41)
[2017-11-12] MEDS: Pantoprazole 40 mg EC Tab PO SCH (10:42)
--- NOTE | 2017-11-12 10:46 | CP.PCM.PN ---
Subjective - Date & Time of Evaluation Date of Evaluation: 11/12/17 Time of Evaluation: 10:47 - Subjective Subjective: COUGH CONTINUES TO IMPROVE DIARRHEA LESS Objective - Vital Signs/Intake and Output Vital Signs (last 24 hours): Temp Pulse Resp BP Pulse Ox 98.2 F 98 H 20 116/90 99 11/11/17 20:57 11/12/17 08:43 11/12/17 08:22 11/12/17 08:43 11/12/17 08:22 - Medications Medications: Current Medications Acetaminophen (Tylenol 325mg Tab) 650 mg PO Q6 PRN PRN Reason: temp 101 Acetylcysteine (Acetylcysteine 20%) 2 ml INH RBID [facility] Last Admin: 11/12/17 07:57 Dose: 2 ml Albuterol/Ipratropium (Duoneb 3 Mg/0.5 Mg (3 Ml) Ud) 3 ml INH RQ4 [facility] Last Admin: 11/12/17 07:57 Dose: 3 ml Alprazolam (Xanax) 0.5 mg PO HS PRN PRN Reason: Anxiety Aspirin (Ecotrin) 81 mg PO DAILY [facility] Last Admin: 11/12/17 08:43 Dose: 81 mg Atorvastatin Calcium (Lipitor) 20 mg PO HS [facility] Last Admin: 11/11/17 22:05 Dose: 20 mg Azithromycin (Zithromax) 250 mg PO DAILY [facility] PRN Reason: Protocol Stop: 11/13/17 09:01 Last Admin: 11/12/17 08:42 Dose: 250 mg Cholecalciferol (Vitamin D) 2,000 intlu PO DAILY [facility] Last Admin: 11/12/17 08:42 Dose: 2,000 intlu Diltiazem HCl (Cardizem Cd) 240 mg PO DAILY [facility] Last Admin: 11/12/17 08:43 Dose: 240 mg Furosemide (Lasix) 40 mg PO DAILY [facility] Last Admin: 11/12/17 08:42 Dose: 40 mg Home Med (Mycophenolate Sodium [Mycophenolic Acid]) 540 mg PO Q12 [facility] Stop: 11/12/17 23:00 Last Admin: 11/12/17 08:41 Dose: 540 mg Home Med (Astagraf Xl) 2 mg PO DAILY@0700 [facility] Last Admin: 11/12/17 06:58 Dose: 2 mg Home Med (Mycophenolate Sodium [Mycophenolic Acid]) 540 mg PO Q12 [facility] Hydrocortisone (Anusol-Hc) 1 applic [place] BID [facility] Last Admin: 11/12/17 08:46 Dose: Not Given Insulin Human Lispro (Humalog) 0 units SC ACHS [facility] PRN Reason: Protocol Last Admin: 11/12/17 06:57 Dose: Not Given Insulin Lispro Protam/Lispro Human (Humalog Mix 75/25) 20 units SC DIN [facility] Last Admin: 11/11/17 16:55 Dose: 20 units Insulin Lispro Protam/Lispro Human (Humalog Mix 75/25) 30 units SC BRK [facility] Last Admin: 11/12/17 08:44 Dose: 30 units Metoprolol Tartrate (Lopressor) 100 mg PO Q12 [facility] Last Admin: 11/12/17 08:41 Dose: 100 mg Multivitamins/Minerals (Therapeutic-M Tab) 1 tab PO DAILY [facility] Last Admin: 11/12/17 08:43 Dose: 1 tab Pantoprazole Sodium (Protonix Ec Tab) 40 mg PO ACL [facility] Last Admin: 11/12/17 10:42 Dose: 40 mg Prednisone (Prednisone Tab) 5 mg PO DAILY [facility] Last Admin: 11/12/17 08:45 Dose: 5 mg Pregabalin (Lyrica) 100 mg PO HS [facility] Last Admin: 11/11/17 22:05 Dose: 100 mg Promethazine HCl/Codeine (Phenergan/Codeine Oral Syrup) 10 ml PO Q4 PRN PRN Reason: Cough Tramadol HCl (Ultram) 50 mg PO DAILY PRN PRN Reason: Pain, severe (8-10) Trimethoprim/Sulfamethoxazole (Bactrim Ds Tab) 1 tab PO MWF [facility] PRN Reason: Protocol Last Admin: 11/11/17 08:16 Dose: 1 tab - Labs Labs: 11/10/17 06:20 11/11/17 06:05 PT 21.4 Seconds (9.8-13.1) H D 11/12/17 05:05 INR 1.9 (0.9-1.2) H D 11/12/17 05:05 - Constitutional Appears: No Acute Distress - Head Exam Head Exam: ATRAUMATIC, NORMAL INSPECTION, NORMOCEPHALIC - Eye Exam Eye Exam: EOMI, Normal appearance, PERRL Pupil Exam: NORMAL ACCOMODATION, PERRL - ENT Exam ENT Exam: Mucous Membranes Moist, Normal Exam - Neck Exam Neck Exam: Full ROM, Normal Inspection. absent: Lymphadenopathy - Respiratory Exam Respiratory Exam: Prolonged Expiratory Phase, Wheezes, NORMAL BREATHING PATTERN - Cardiovascular Exam Cardiovascular Exam: REGULAR RHYTHM, +S1, +S2. absent: Murmur - GI/Abdominal Exam GI & Abdominal Exam: Soft, Normal Bowel Sounds. absent: Tenderness - Rectal Exam Rectal Exam: NORMAL INSPECTION - Extremities Exam Extremities Exam: Full ROM, Normal Capillary Refill, Normal Inspection, Pedal Edema. absent: Joint Swelling - Back Exam Back Exam: NORMAL INSPECTION - Neurological Exam Neurological Exam: Alert, Awake, CN II-XII Intact, Normal Gait, Oriented x3 - Psychiatric Exam Psychiatric exam: Normal Affect, Normal Mood - Skin Skin Exam: Dry, Intact, Normal Color, Warm Assessment and Plan - Assessment and Plan (Free Text) Assessment: ACUTE ASTHMA URI PEDAL EDEMA DM PAROXYSMAL A.FIB Plan: CONTINUE CURRENT RX
[2017-11-12] MEDS: Promethazine/Cod 6.25mg-10mg/5ml Syr UD PO PRN (21:04)
[2017-11-13] MEDS: Insulin Lispro (humaLOG) 100 Units/ml Inj SC SCH ×5 (03:44→21:47)
[2017-11-13] MEDS: Albuterol-Ipratrop 3 mg / 0.5 (3 ml) UD INH SCH ×5 (04:06→19:10)
[2017-11-13] MEDS: ASTAGRAF 1 MG PO SCH (07:17)
[2017-11-13] MEDS: Acetylcysteine 20% Inhal Soln (4ml) INH SCH (07:28)
[2017-11-13 08:09] LABS: PROTHROMBIN TIME 17.6 Seconds (9.8-13.1)
[2017-11-13 08:10] LABS: INR 1.6 (0.9-1.2)
[2017-11-13] MEDS: Multivitamin With Minerals Tab PO SCH (08:29)
[2017-11-13] MEDS: Hydrocortisone 2.5% (Rectal) CREAM PR SCH ×2 (08:29→17:31)
[2017-11-13] MEDS: Cholecalciferol 1,000 INTLU TAB PO SCH (08:31)
[2017-11-13] MEDS: diltiaZEM 240 mg/24 Hours CD Cap PO SCH (08:33)
[2017-11-13] MEDS: Insulin Lispro Mix 75/25 100 units/ml (HumaLog) 10ml SC SCH ×2 (08:35→17:34)
[2017-11-13] MEDS: MYCOPHENOLATE SODIUM 180 MG PO SCH ×2 (08:37→21:51)
--- NOTE | 2017-11-13 11:03 | CP.PCM.PN ---
Subjective - Date & Time of Evaluation Date of Evaluation: 11/13/17 Time of Evaluation: 10:30 - Subjective Subjective: NO CHEST PAIN BREATHING BETTER Objective - Vital Signs/Intake and Output Vital Signs (last 24 hours): Temp Pulse Resp BP Pulse Ox 97.9 F 91 H 20 146/64 94 L 11/13/17 08:14 11/13/17 08:33 11/13/17 08:14 11/13/17 08:33 11/13/17 08:14 - Medications Medications: Current Medications Acetaminophen (Tylenol 325mg Tab) 650 mg PO Q6 PRN PRN Reason: temp 101 Acetylcysteine (Mucomyst 10% 4ml) 4 ml IH RBID [facility] Albuterol/Ipratropium (Duoneb 3 Mg/0.5 Mg (3 Ml) Ud) 3 ml INH RQ4 [facility] Last Admin: 11/13/17 07:29 Dose: 3 ml Alprazolam (Xanax) 0.5 mg PO HS PRN PRN Reason: Anxiety Aspirin (Ecotrin) 81 mg PO DAILY [facility] Last Admin: 11/13/17 08:31 Dose: 81 mg Atorvastatin Calcium (Lipitor) 20 mg PO HS [facility] Last Admin: 11/12/17 21:14 Dose: 20 mg Cholecalciferol (Vitamin D) 2,000 intlu PO DAILY [facility] Last Admin: 11/13/17 08:31 Dose: 2,000 intlu Diltiazem HCl (Cardizem Cd) 240 mg PO DAILY [facility] Last Admin: 11/13/17 08:33 Dose: 240 mg Furosemide (Lasix) 40 mg PO DAILY [facility] Last Admin: 11/13/17 08:30 Dose: 40 mg Home Med (Astagraf Xl) 2 mg PO DAILY@0700 [facility] Last Admin: 11/13/17 07:17 Dose: 2 mg Home Med (Mycophenolate Sodium [Mycophenolic Acid]) 540 mg PO Q12 [facility] Last Admin: 11/13/17 08:37 Dose: 540 mg Hydrocortisone (Anusol-Hc) 1 applic [place] BID [facility] Last Admin: 11/13/17 08:29 Dose: Not Given Insulin Human Lispro (Humalog) 0 units SC ACHS [facility] PRN Reason: Protocol Last Admin: 11/13/17 07:23 Dose: 2 u Insulin Lispro Protam/Lispro Human (Humalog Mix 75/25) 20 units SC DIN [facility] Last Admin: 11/12/17 16:42 Dose: 20 units Insulin Lispro Protam/Lispro Human (Humalog Mix 75/25) 30 units SC BRK [facility] Last Admin: 11/13/17 08:35 Dose: 30 units Loperamide HCl (Imodium) 2 mg PO BID PRN PRN Reason: Diarrhea Metoprolol Tartrate (Lopressor) 100 mg PO Q12 [facility] Last Admin: 11/13/17 08:31 Dose: 100 mg Multivitamins/Minerals (Therapeutic-M Tab) 1 tab PO DAILY [facility] Last Admin: 11/13/17 08:29 Dose: 1 tab Pantoprazole Sodium (Protonix Ec Tab) 40 mg PO ACL [facility] Last Admin: 11/12/17 10:42 Dose: 40 mg Prednisone (Prednisone Tab) 5 mg PO DAILY [facility] Last Admin: 11/13/17 08:37 Dose: 5 mg Pregabalin (Lyrica) 100 mg PO HS [facility] Last Admin: 11/12/17 21:13 Dose: 100 mg Promethazine HCl/Codeine (Phenergan/Codeine Oral Syrup) 10 ml PO Q4 PRN PRN Reason: Cough Last Admin: 11/12/17 21:04 Dose: 10 ml Tramadol HCl (Ultram) 50 mg PO DAILY PRN PRN Reason: Pain, severe (8-10) Last Admin: 11/13/17 07:16 Dose: 50 mg Trimethoprim/Sulfamethoxazole (Bactrim Ds Tab) 1 tab PO MWF [facility] PRN Reason: Protocol Last Admin: 11/11/17 08:16 Dose: 1 tab - Labs Labs: 11/10/17 06:20 11/11/17 06:05 PT 17.6 Seconds (9.8-13.1) H 11/13/17 06:20 INR 1.6 (0.9-1.2) H 11/13/17 06:20 - Respiratory Exam Respiratory Exam: Wheezes - Cardiovascular Exam Cardiovascular Exam: REGULAR RHYTHM, +S1, +S2 - Extremities Exam Additional comments: MILD BILAT LE EDEMA Assessment and Plan - Assessment and Plan (Free Text) Assessment: ASTHMA CAD-STABLE HYPERTENSION OLD CVA LEG EDEMA FROM VEIN STRIPPING FOR VV AND VEIN HARVESTING FOR CABGS Plan: CONTINUE RESPIRATORY CARE, FUROSEMIDE, METOPROLOL, DILTIAZEM, ATORVASTATIN, ASPIRIN PATIENT DISCUSSED WITH DR FLOOD
[2017-11-13] MEDS: Pantoprazole 40 mg EC Tab PO SCH (11:30)
[2017-11-13] MEDS: Acetylcysteine 10% 4 ML IH SCH ×2 (11:34→19:10)
--- NOTE | 2017-11-13 11:51 | CP.PCM.PN ---
Subjective - Date & Time of Evaluation Date of Evaluation: 11/13/17 Time of Evaluation: 11:51 - Subjective Subjective: cough continues to improve sob less no chest pains less pedal edema Objective - Vital Signs/Intake and Output Vital Signs (last 24 hours): Temp Pulse Resp BP Pulse Ox 97.9 F 91 H 20 146/64 94 L 11/13/17 08:14 11/13/17 08:33 11/13/17 08:14 11/13/17 08:33 11/13/17 08:14 - Medications Medications: Current Medications Acetaminophen (Tylenol 325mg Tab) 650 mg PO Q6 PRN PRN Reason: temp 101 Acetylcysteine (Mucomyst 10% 4ml) 4 ml IH RBID [facility] Last Admin: 11/13/17 11:34 Dose: 4 ml Albuterol/Ipratropium (Duoneb 3 Mg/0.5 Mg (3 Ml) Ud) 3 ml INH RQ4 [facility] Last Admin: 11/13/17 11:35 Dose: 3 ml Alprazolam (Xanax) 0.5 mg PO HS PRN PRN Reason: Anxiety Aspirin (Ecotrin) 81 mg PO DAILY [facility] Last Admin: 11/13/17 08:31 Dose: 81 mg Atorvastatin Calcium (Lipitor) 20 mg PO HS [facility] Last Admin: 11/12/17 21:14 Dose: 20 mg Cholecalciferol (Vitamin D) 2,000 intlu PO DAILY [facility] Last Admin: 11/13/17 08:31 Dose: 2,000 intlu Diltiazem HCl (Cardizem Cd) 240 mg PO DAILY [facility] Last Admin: 11/13/17 08:33 Dose: 240 mg Furosemide (Lasix) 40 mg PO DAILY [facility] Last Admin: 11/13/17 08:30 Dose: 40 mg Home Med (Astagraf Xl) 2 mg PO DAILY@0700 [facility] Last Admin: 11/13/17 07:17 Dose: 2 mg Home Med (Mycophenolate Sodium [Mycophenolic Acid]) 540 mg PO Q12 [facility] Last Admin: 11/13/17 08:37 Dose: 540 mg Hydrocortisone (Anusol-Hc) 1 applic [place] BID [facility] Last Admin: 11/13/17 08:29 Dose: Not Given Insulin Human Lispro (Humalog) 0 units SC ACHS [facility] PRN Reason: Protocol Last Admin: 11/13/17 07:23 Dose: 2 u Insulin Lispro Protam/Lispro Human (Humalog Mix 75/25) 20 units SC DIN [facility] Last Admin: 11/12/17 16:42 Dose: 20 units Insulin Lispro Protam/Lispro Human (Humalog Mix 75/25) 30 units SC BRK [facility] Last Admin: 11/13/17 08:35 Dose: 30 units Loperamide HCl (Imodium) 2 mg PO BID PRN PRN Reason: Diarrhea Metoprolol Tartrate (Lopressor) 100 mg PO Q12 [facility] Last Admin: 11/13/17 08:31 Dose: 100 mg Multivitamins/Minerals (Therapeutic-M Tab) 1 tab PO DAILY [facility] Last Admin: 11/13/17 08:29 Dose: 1 tab Pantoprazole Sodium (Protonix Ec Tab) 40 mg PO ACL [facility] Last Admin: 11/12/17 10:42 Dose: 40 mg Prednisone (Prednisone Tab) 5 mg PO DAILY [facility] Last Admin: 11/13/17 08:37 Dose: 5 mg Pregabalin (Lyrica) 100 mg PO HS [facility] Last Admin: 11/12/17 21:13 Dose: 100 mg Promethazine HCl/Codeine (Phenergan/Codeine Oral Syrup) 10 ml PO Q4 PRN PRN Reason: Cough Last Admin: 11/12/17 21:04 Dose: 10 ml Tramadol HCl (Ultram) 50 mg PO DAILY PRN PRN Reason: Pain, severe (8-10) Last Admin: 11/13/17 07:16 Dose: 50 mg Trimethoprim/Sulfamethoxazole (Bactrim Ds Tab) 1 tab PO MWF [facility] PRN Reason: Protocol Last Admin: 11/11/17 08:16 Dose: 1 tab - Labs Labs: 11/10/17 06:20 11/11/17 06:05 PT 17.6 Seconds (9.8-13.1) H 11/13/17 06:20 INR 1.6 (0.9-1.2) H 11/13/17 06:20 - Constitutional Appears: No Acute Distress - Head Exam Head Exam: ATRAUMATIC, NORMAL INSPECTION, NORMOCEPHALIC - Eye Exam Eye Exam: EOMI, Normal appearance, PERRL Pupil Exam: NORMAL ACCOMODATION, PERRL - ENT Exam ENT Exam: Mucous Membranes Moist, Normal Exam - Neck Exam Neck Exam: Full ROM, Normal Inspection. absent: Lymphadenopathy - Respiratory Exam Respiratory Exam: Clear to Ausculation Bilateral, Prolonged Expiratory Phase, NORMAL BREATHING PATTERN - Cardiovascular Exam Cardiovascular Exam: REGULAR RHYTHM, +S1, +S2. absent: Murmur - GI/Abdominal Exam GI & Abdominal Exam: Soft, Normal Bowel Sounds. absent: Tenderness - Rectal Exam Rectal Exam: NORMAL INSPECTION - Extremities Exam Extremities Exam: Full ROM, Normal Capillary Refill, Normal Inspection, Pedal Edema. absent: Joint Swelling Additional comments: pedal edema less - Back Exam Back Exam: NORMAL INSPECTION - Neurological Exam Neurological Exam: Alert, Awake, CN II-XII Intact, Normal Gait, Oriented x3 - Psychiatric Exam Psychiatric exam: Normal Affect, Normal Mood - Skin Skin Exam: Dry, Intact, Normal Color, Warm Assessment and Plan - Assessment and Plan (Free Text) Assessment: asthma-improved uri improved pedal edema less ashd-stable s/p renal transplant Plan: d/c in am if stable
[2017-11-13] MEDS: Promethazine/Cod 6.25mg-10mg/5ml Syr UD PO PRN (21:55)
[2017-11-14] MEDS: Albuterol-Ipratrop 3 mg / 0.5 (3 ml) UD INH SCH ×5 (00:14→15:25)
[2017-11-14] MEDS: Insulin Lispro (humaLOG) 100 Units/ml Inj SC SCH ×3 (06:48→16:23)
[2017-11-14] MEDS: ASTAGRAF 1 MG PO SCH (06:49)
[2017-11-14 07:25] LABS: INR 1.6 (0.9-1.2); PROTHROMBIN TIME 18.1 Seconds (9.8-13.1)
[2017-11-14] MEDS: Acetylcysteine 10% 4 ML IH SCH (07:34)
--- NOTE | 2017-11-14 08:17 | CP.PCM.DIS ---
Provider - Provider Date of Admission: 11/07/17 15:42 Attending physician: Luis Alberto Rodríguez MD Time Spent in preparation of Discharge (in minutes): 30 Diagnosis - Discharge Diagnosis (1) Asthma Status: Acute (2) CAD (coronary artery disease) Status: Acute (3) Cough Status: Acute (4) Dyspnea and respiratory abnormalities Status: Acute (5) Hx of CABG Status: Acute (6) Hypertension Status: Acute (7) Renal transplant recipient Status: Acute (8) Upper respiratory infection Status: Acute Hospital Course - Lab Results Lab Results: Most Recent Lab Values WBC 10.0 K/uL (4.8-10.8) 11/10/17 06:20 RBC 5.24 Mil/uL (4.40-5.90) 11/10/17 06:20 Hgb 14.8 g/dL (12.0-18.0) 11/10/17 06:20 Hct 45.5 % (35.0-51.0) 11/10/17 06:20 MCV 86.7 fl (80.0-94.0) 11/10/17 06:20 MCH 28.2 pg (27.0-31.0) 11/10/17 06:20 MCHC 32.6 g/dL (33.0-37.0) L 11/10/17 06:20 RDW 15.6 % (11.5-14.5) H 11/10/17 06:20 Plt Count 186 K/uL (130-400) 11/10/17 06:20 PT 18.1 Seconds (9.8-13.1) H 11/14/17 05:30 INR 1.6 (0.9-1.2) H 11/14/17 05:30 Sodium 134 mmol/l (132-148) 11/11/17 06:05 Potassium 4.8 MMOL/L (3.6-5.0) 11/11/17 06:05 Chloride 97 mmol/L (98-107) L 11/11/17 06:05 Carbon Dioxide 30 mmol/L (22-30) 11/11/17 06:05 Anion Gap 12 (10-20) 11/11/17 06:05 BUN 43 mg/dl (9-20) H 11/11/17 06:05 Creatinine 1.1 mg/dl (0.8-1.5) 11/11/17 06:05 Est GFR ( Amer) > 60 11/11/17 06:05 Est GFR (Non-Af Amer) > 60 11/11/17 06:05 POC Glucose (mg/dL) 166 mg/dL (65-110) H 11/13/17 20:55 Random Glucose 208 mg/dL (75-110) H 11/11/17 06:05 Calcium 9.9 mg/dL (8.4-10.2) 11/11/17 06:05 Tacrolimus (LC/MS/MS) 8.2 mcg/L (5.0-20.0) 11/09/17 06:00 - Hospital Course Hospital Course: sob and cough improved pedal edema less Discharge Exam - Head Exam Head Exam: ATRAUMATIC, NORMAL INSPECTION, NORMOCEPHALIC - Eye Exam Eye Exam: EOMI, Normal appearance, PERRL Pupil Exam: NORMAL ACCOMODATION, PERRL - Respiratory Exam Respiratory Exam: Prolonged Expiratory Phase - GI/Abdominal Exam GI & Abdominal Exam: Normal Bowel Sounds - Rectal Exam Rectal Exam: NORMAL INSPECTION - Extremities Exam Extremities exam: pedal edema Additional comments: edema less - Neurological Exam Neurological exam: Alert, CN II-XII Intact, Normal Gait, Oriented x3, Reflexes Normal - Psychiatric Exam Psychiatric exam: Normal Affect, Normal Mood - Skin Skin Exam: Dry, Intact, Normal Color, Warm Discharge Plan - Follow Up Plan Condition: GOOD Disposition: HOME/ ROUTINE Patient education suggested?: Yes Additional Instructions: discharge today follow up with dr rodríguez in 1 week
[2017-11-14] MEDS: diltiaZEM 240 mg/24 Hours CD Cap PO SCH (08:46)
[2017-11-14] MEDS: MYCOPHENOLATE SODIUM 180 MG PO SCH (08:52)
[2017-11-14] MEDS: Insulin Lispro Mix 75/25 100 units/ml (HumaLog) 10ml SC SCH ×2 (08:54→16:24)
[2017-11-14] MEDS: Multivitamin With Minerals Tab PO SCH (08:55)
[2017-11-14] MEDS: Cholecalciferol 1,000 INTLU TAB PO SCH (08:56)
[2017-11-14] MEDS ORDERED: Sucralfate 1 gm/10 ml Oral Susp UD PO ONE (09:00)
[2017-11-14] MEDS: Hydrocortisone 2.5% (Rectal) CREAM PR SCH ×2 (09:00→16:27)
--- NOTE | 2017-11-14 10:26 | CP.PCM.PN ---
Subjective - Date & Time of Evaluation Date of Evaluation: 11/14/17 Time of Evaluation: 07:30 - Subjective Subjective: NO COMPLAINTS BREATHING BETTER NO CHEST PAIN Objective - Vital Signs/Intake and Output Vital Signs (last 24 hours): Temp Pulse Resp BP Pulse Ox 97.7 F 80 20 127/59 L 98 11/14/17 08:01 11/14/17 08:51 11/14/17 08:01 11/14/17 08:51 11/14/17 08:01 - Medications Medications: Current Medications Acetaminophen (Tylenol 325mg Tab) 650 mg PO Q6 PRN PRN Reason: temp 101 Acetylcysteine (Mucomyst 10% 4ml) 4 ml IH RBID [facility] Last Admin: 11/14/17 07:34 Dose: 4 ml Albuterol/Ipratropium (Duoneb 3 Mg/0.5 Mg (3 Ml) Ud) 3 ml INH RQ4 [facility] Last Admin: 11/14/17 07:34 Dose: 3 ml Alprazolam (Xanax) 0.5 mg PO HS PRN PRN Reason: Anxiety Aspirin (Ecotrin) 81 mg PO DAILY [facility] Last Admin: 11/14/17 08:47 Dose: 81 mg Atorvastatin Calcium (Lipitor) 20 mg PO HS [facility] Last Admin: 11/13/17 21:49 Dose: 20 mg Cholecalciferol (Vitamin D) 2,000 intlu PO DAILY [facility] Last Admin: 11/14/17 08:56 Dose: 2,000 intlu Diltiazem HCl (Cardizem Cd) 240 mg PO DAILY [facility] Last Admin: 11/14/17 08:46 Dose: 240 mg Furosemide (Lasix) 40 mg PO DAILY [facility] Last Admin: 11/14/17 08:50 Dose: 40 mg Home Med (Astagraf Xl) 2 mg PO DAILY@0700 [facility] Last Admin: 11/14/17 06:49 Dose: 2 mg Home Med (Mycophenolate Sodium [Mycophenolic Acid]) 540 mg PO Q12 [facility] Last Admin: 11/14/17 08:52 Dose: 540 mg Hydrocortisone (Anusol-Hc) 1 applic CO BID [facility] Last Admin: 11/14/17 09:00 Dose: 1 applic Insulin Human Lispro (Humalog) 0 units SC ACHS [facility] PRN Reason: Protocol Last Admin: 11/14/17 06:48 Dose: Not Given Insulin Lispro Protam/Lispro Human (Humalog Mix 75/25) 20 units SC DIN [facility] Last Admin: 11/13/17 17:34 Dose: 20 units Insulin Lispro Protam/Lispro Human (Humalog Mix 75/25) 30 units SC BRK [facility] Last Admin: 11/14/17 08:54 Dose: 30 units Loperamide HCl (Imodium) 2 mg PO BID PRN PRN Reason: Diarrhea Metoprolol Tartrate (Lopressor) 100 mg PO Q12 [facility] Last Admin: 11/14/17 08:51 Dose: 100 mg Multivitamins/Minerals (Therapeutic-M Tab) 1 tab PO DAILY [facility] Last Admin: 11/14/17 08:55 Dose: 1 tab Pantoprazole Sodium (Protonix Ec Tab) 40 mg PO ACL [facility] Last Admin: 11/13/17 11:30 Dose: 40 mg Prednisone (Prednisone Tab) 5 mg PO DAILY [facility] Last Admin: 11/14/17 08:55 Dose: 5 mg Promethazine HCl/Codeine (Phenergan/Codeine Oral Syrup) 10 ml PO Q4 PRN PRN Reason: Cough Last Admin: 11/13/17 21:55 Dose: 10 ml Tramadol HCl (Ultram) 50 mg PO DAILY PRN PRN Reason: Pain, severe (8-10) Last Admin: 11/13/17 07:16 Dose: 50 mg - Labs Labs: 11/10/17 06:20 11/11/17 06:05 PT 18.1 Seconds (9.8-13.1) H 11/14/17 05:30 INR 1.6 (0.9-1.2) H 11/14/17 05:30 - Respiratory Exam Respiratory Exam: Clear to Ausculation Bilateral - Cardiovascular Exam Cardiovascular Exam: REGULAR RHYTHM, +S1, +S2 - Extremities Exam Additional comments: MILD BILAT LE EDEMA Assessment and Plan - Assessment and Plan (Free Text) Assessment: ASTHMA-IMPROVED CAD-STABLE HYPERTENSION HYPERLIPIDEMIA Plan: FOR DISCHARGE TODAY CONTINUE ASPIRIN, DILTIAZEM, FUROSEMIDE, METOPROLOL AND ATORVASTATIN FU CARDIOLOGY CARE WITH HIS PRIVATE RECEIVING LEAD, DR DUKES
[2017-11-14] MEDS: Pantoprazole 40 mg EC Tab PO SCH (12:10)
[2017-11-14] MEDS: Promethazine/Cod 6.25mg-10mg/5ml Syr UD PO PRN (13:11)
[2017-11-14 17:02] VITALS: BP 103/57; PULSE 91; RESP 20; TEMP 98.6; O2SAT 99
== END 2017-11-14 18:45 | disposition home or self-care (01) | DRG 202 ==
LOC: H.TCU 15:42
PROVIDERS: ADMIT Internal Medicine Pulmonary Disease; ATTEND Internal Medicine Pulmonary Disease
PROC: F07Z9ZZ Gait Training/Functional Ambulation Treatment (ICD-10-PCS; principal; 2017-11-07)
PROC: F07L6ZZ Therapeutic Exercise Treatment of Musculoskeletal System - Lower Back / Lower Extremity (ICD-10-PCS; 2017-11-07)
PROC: 5A0955Z Assistance with Respiratory Ventilation, Greater than 96 Consecutive Hours (ICD-10-PCS; 2017-11-07)
DX: J45.21 Mild intermittent asthma with (acute) exacerbation (principal); Z94.0 Kidney transplant status; J06.9 Acute upper respiratory infection, unspecified; I25.10 Atherosclerotic heart disease of native coronary artery without angina pectoris; Z95.1 Presence of aortocoronary bypass graft; Z86.73 Personal history of transient ischemic attack (TIA), and cerebral infarction without residual deficits; I48.0 Paroxysmal atrial fibrillation; E11.42 Type 2 diabetes mellitus with diabetic polyneuropathy; E78.5 Hyperlipidemia, unspecified; I25.2 Old myocardial infarction; E78.00 Pure hypercholesterolemia, unspecified; I10 Essential (primary) hypertension; R19.7 Diarrhea, unspecified; E11.65 Type 2 diabetes mellitus with hyperglycemia; E11.51 Type 2 diabetes mellitus with diabetic peripheral angiopathy without gangrene